=== PATIENT | female | born 1970 | race Caucasian/White ===

== ENCOUNTER → 2016-11-02 | Outpatient (CLI) | payer SELFPAY | LOC: LAB 14:23 | PROVIDERS: ATTEND Physician Assistant | DX: N89.8 Other specified noninflammatory disorders of vagina (principal); R30.0 Dysuria | CPT/HCPCS: 87491; 87591 ==

== ENCOUNTER → 2016-11-04 | Outpatient (CLI) | payer SELFPAY | LOC: MOB LAB 13:04 | PROVIDERS: ATTEND Physician Assistant | DX: N39.0 Urinary tract infection, site not specified (principal) | CPT/HCPCS: 87088 ==

== ENCOUNTER 2016-11-05 11:11 | Emergency (ER) | payer SELFPAY ==
[2016-11-05] MEDS ORDERED: MEPERIDINE HCL/PF 100 MG/1 ML INJECTION IM ONE (12:06)
[2016-11-05 12:14] VITALS: RESP 18; TEMP 97.1
[2016-11-05] MEDS ORDERED: MEPERIDINE HCL/PF 100 MG/1 ML INJECTION ONE (12:20)
[2016-11-05 12:53] LABS: BILIRUBIN,URINE NEGATIVE (NEG); CLARITY,URINE CLEAR (CLEAR); GLUCOSE, URINE (UA) NEGATIVE (NEG); LEUKOCYTE ESTERASE ,URINE NEGATIVE (NEG); NITRATE,URINE POSITIVE (NEG); OCCULT BLOOD,URINE NEGATIVE (NEG); PROTEIN,URINE NEGATIVE (NEG); UROBILINOGEN,URINE 0.2 mg/dL (0.2)
[2016-11-05 12:56] LABS: RBC,URINE 0 /hpf; SQUAMOUS EPITHELIAL CELL,UR RARE; URINE SAMPLE TYPE CATH SPECIMEN; WBC,URINE 0-1
--- NOTE | 2016-11-05 19:27 | PDOC ---
Female Problem HPI - General Chief Complaint: Genitourinary Complaint Stated Complaint: TROUBLE URINATING Date Seen by Provider: 11/05/16 Time Seen by Provider: 11:20 Source: POSITIVE: Patient, Old records Exam Limitations: POSITIVE: No limitations Nurse's Notes Reviewed & Considered: Yes - History of Present Illness Initial Comments: The patient is a 46-year-old female. She states that for the past 6 days she has been having dysuria, urinary urgency and hesitancy. She states 6 days ago, approximately, she saw her primary care provider. She states she had some "vaginal sores"at that time. She was diagnosed with herpes and was started on Valtrex, which she is still taking. She states the "sores"have largely resolved. She was also started on Septra for presumed urinary tract infection and this was switched to Macrodantin 3 days ago when she was not getting any relief from her dysuria with the Septra. GC and Chlamydiazyme were negative. I cannot find the results of any urine cultures. No fevers. No hematuria. She underwent a complete hysterectomy and a bladder sling in 1997. She's had an appendectomy and a cholecystectomy. Body Location Affected: REPORTS: Genitalia (Dysuria, urinary hasn't see, urinary urgency.) Timing: REPORTS: Constant Duration: >24 hours (6 days) Quality: REPORTS: "Pain" (Dysuria) Context: REPORTS: Possible STD Exposure (Patient states that she had intercourse for the first time in a long time several days prior to the onset of her symptoms and her "vaginal sores". She denies any prior history of STDs.) Location of Pain: REPORTS: Vaginal Pain Vaginal Bleeding: DENIES: Abnormal Bleeding, More Severe Than Periods, Heavier Than Periods, Similar to Periods, Solid Plasterer Than Periods, Spotting, Passing Clots , Passing Tissue, Other : REPORTS: S/P Hysterectomy Sexual History: REPORTS: Active Urinary Symptoms: REPORTS: Discomfort w/ Urination, Burning w/ Urination, Urinary Urgency, Painful Urination. DENIES: Blood in Urine, Frequent Urination , Other Discharge: DENIES: Vaginal Discharge, Vag Fluid Leak- , Breast Discharge, Other Similar Symptoms Previously: Yes (as above) Recent Care Received: REPORTS: Recently Seen, Treated by MD (As above) Any Prior Injuries Related to Current Complaint?: No - Patient Home Medications Home Medications: Home Medications Lorazepam 1 tab PO TID PRN #90 tab 10/03/16 Melatonin 20 mg SL BEDTIME tab 10/03/16 Naproxen Na-Diphenhydramin HCl [Aleve Pm Caplet] 1 tab PO at bedtime tab Amitriptyline HCl 1 tab PO BID #120 tab 11/02/16 Niacinamide 1,000 mg PO QD tab 11/02/16 Valacyclovir HCl [Valacyclovir] 1 unit PO BID #20 tab 11/02/16 Vitamin B Complex 1 each PO QD cap 11/02/16 Hydrocodone Bit/Acetaminophen [[place] 7.5-325 Tablet] 1 tab PO Q4-6H #10 tab 01/15 Phenazopyridine HCl [Pyridium] 200 mg PO TID #6 tab 11/04/16 Sulfamethoxazole/Trimethoprim [Bactrim Ds Tablet] 1 tab PO BID #14 tab 11/04/16 Ciprofloxacin/Ciprofloxa HCl [Cipro Xr 500 mg Tablet] 500 mg PO Q12H #20 tbmp.24hr 11/05/16 HYDROcodone/APAP 10/325 Tab [[place] 10/325 Tab] 1 tab PO Q4H PRN #25 tab Phenazopyridine HCl [Pyridium] 200 mg PO Q8H PRN #21 tablet 11/05/16 - Patient Allergies Allergies/Adverse Reactions: Allergies Allergy/AdvReac Type Severity Reaction Status Date / Time azithromycin [From Zithromax] Allergy Mild facial Verified 11/05/16 11:28 redness/swelling, hives Past Medical History - heen HEENT History: Other (please comment) Additional HEENT History: BROKEN FRONT TEETH Cardiovascular History: Denies History Respiratory History: Denies History Gastrointestinal History: Gallbladder Disease Additional Gastrointestinal History: MULTIPLE ABD SURGERIES, ADHESIONS, ABDOMINAL PAIN, Genitourinary History: Denies History Endocrine History: Denies History Musculoskeletal History: Back Pain Prosthesis or Implant: Yes (R HAND) Additional Musculoskeletal History: 07/20/14 INJURY TO RIGHT THUMB WITH SURGERY THAT SAME DAY PERFORMED BY DR RIOS/LOWER BACK INJURY Neurological History: Migraines Blood Disorders: Denies History Psychiatric History: Depression, Anxiety Disorders History of Sexually Transmitted Diseases: No Cancer History: Denies History In Past Year Been Physically Harmed or Verbally Threatened: No History of MDRO: No History of Other Communicable Diseases: No Tobacco Use: Current Every Day Smoker Alcohol Use: Occasionally Substance Use Type: Marijuana Previous Surgical History: Yes Type / Date of Surgery: BLADDER SLING/ COMPLETE HYST/ LAMI L3-5/ ORIF RIGHT WRIST/ LEFT KNEE SCOPE x2/ TONSILLECTOMY/ LEFT FEMUR RODDING AND REMOVAL OF GARO/ BILAT OOPHORECTOMY 2013/REMOVAL OF R THUMB AT [facility] 2014/TUBAL/COLONOSCOPY/EGD / CHOLECYSTECTOMY Anesthesia Reactions: No Malignant Hyperthermia: No Significant Family History: Heart disease, Cancer, Hypertension Past Medical History Reviewed: Reviewed - No Changes ROS - Limitations ROS Limitations: No Limitations Constitution: REPORTS: Denies Symptoms Cardiovascular: REPORTS: Denies Cardiac Symptoms Respiratory: REPORTS: Denies Resp Symptoms Neurological: REPORTS: Denies Neuro Symptoms Gastrointestinal: REPORTS: Denies GI Symptoms Endocrine: REPORTS: Denies Symptoms Musculoskeletal: REPORTS: Denies MS Symptoms Genitourinary: REPORTS: Dysuria, Difficulty Urinating Eyes: REPORTS: Denies Symptoms ENT: REPORTS: Denies Symptoms Skin: REPORTS: Denies Skin Symptoms Lympathic: REPORTS: Denies Lympathic Symptoms Immunologic: POSITIVE: Denies Symptoms Psychiatric: POSITIVE: Denies Psych Symptoms Female Genitourinary Exam - General Appearance General Appearance: POSITIVE: Alert, Cooperative, No Acute Distress, No Evidence of Trauma - HEENT HEENT: POSITIVE: Head Inspection Nml, Eyes Inspection Nml, Ears Inspection Nml, Nose Inspection Nml, Oral/Dental Inspect. Nml, Pharynx Inspect. Nml, PERRL, EOMI - Neck Neck: POSITIVE: Normal Inspection, No Apparent Injury - Respiratory Respiratory: POSITIVE: No Respiratory Distress, Breath Sounds Normal, Chest Non- Tender - Cardiovascular Cardiovascular: POSITIVE: Regular Rate and Rhythm, Heart Sounds Normal, Equal Pulses, Strong Pulses Peripheral Pulses: Radial (R): 2+, Radial (L): 2+ - Abdomen Abdomen: POSITIVE: Soft, Normal Bowel Sounds, Non-Tender, No Distention, No Organomegaly - Back Back: POSITIVE: Normal Inspection. NEGATIVE: CVA Tenderness (R), CVA Tenderness (L) - Genital / Rectal Pelvic Exam: POSITIVE: Vagina (One small lesion to the right lower external labia mildly vesicular. 2 scabbing lesions left labia majora.), Uterus (Status post hysterectomy), Adnexa (Not palpated), External Exam Normal (As above), Bimanual Exam Normal. NEGATIVE: Cervix (Status post hysterectomy), Speculum Exam Normal (Speculum exam generally tender. No intraoral lesions are appreciated. Patient is tender around the urethra but no obvious lesions at the urethral meatus), Vaginal Discharge, Herpes-Like Ulcerations, Vaginal Bleeding, Blood In Vaginal Vault, Clots in vaginal Vault, Cervicitis, Tissue Present in Cervix, Tissue Present in Vagina, Cervical Motion Tender, Cervical Dilation, Adnexal Tenderness, Adnexal Mass, Enlarged Uterus, Tender Uterus, Perineal Hematoma, Enlrgd Consistent w/Dates, Mild, Moderate, Severe - Skin Skin: POSITIVE: Intact, Normal For Race, Warm, Dry, No Rash - Extremities Extremity: Non-Tender: (All Extremities), Normal ROM: (All Extremities), Normal Inspection: (All Extremities) - Neurological / Psychological Neurological: POSITIVE: Oriented X3, yoke presser Normal As Tested, Motor Normal, Sensation Normal, 5, 6 Female Genitourinary Progress - Results Reviewed by me Lab Results Reviewed: Yes (urinalysis normal except nitrate positive; culture ordered) Lab Results:: Laboratory Results 11/05/16 Range/Units 12:48 Ur Collection Type Cath specimen Urine Color Yellow Urine Clarity Clear (CLEAR) Urine pH 7.0 (5.0-8.5) Ur Specific [place] 1.010 (1.005-1.030) Urine Protein Negative (NEG) mg/dl Urine Glucose (UA) Negative (NEG) mg/dL Urine Ketones Negative (NEG) Urine Occult Blood Negative (NEG) Urine Nitrate Positive H (NEG) Urine Bilirubin Negative (NEG) Urine Urobilinogen 0.2 (0.2) mg/dL Ur Leukocyte Esterase Negative (NEG) Urine RBC 0 (NONE) /hpf Urine WBC 0-1 (NONE) Ur Squamous Epith Cells Rare (NONE) Ur Renal Epithelial Cell None (NONE) Urine Crystals None Urine Bacteria None (NONE) Urine Casts None Urine Mucus None (NONE) Urine Trichomonas None (NONE) Urine Yeast None (NONE) - Patient's Progress Pain Medication Addressed: POSITIVE: Yes (Hydrocodone/APAP, one every 6 hours as necessary for pain; Pyridium one every 8 hours for urinary discomfort) School/Work Release Addressed: POSITIVE: Not Applicable Re-Examine Time: 13:25 Status: POSITIVE: Unchanged, Re-Examined - Consult Counseled: POSITIVE: Patient, RE: Lab Results, RE: DX, RE: Need for F/U Patient Care Time - Estimated PCT Patient Care Time (In Minutes): 45 Vital Signs - VS Reviewed Vital Signs Reviewed: Yes Discharge Clinical Impression: Urinary pain Discharge Disposition: Discharged to Home Condition: Fair Prescriptions / Orders: Ciprofloxacin/Ciprofloxa HCl [Cipro Xr 500 mg Tablet] 500 mg PO Q12H #20 tbmp.24hr HYDROcodone/APAP 10/325 Tab [[place] 10/325 Tab] 1 tab PO Q4H PRN #25 tab PRN Reason: Pain Phenazopyridine HCl [Pyridium] 200 mg PO Q8H PRN #21 tablet PRN Reason: Urinary Discomfort Patient Instructions Given at Discharge: Urinary Tract Infection in Women (ED) Additional Instructions: I am not completely sure why you're having continuing urinary discomfort with difficulty urinating. Repeat urinalysis today showed that you did have nitrates in your urine, which we can see with partially treated urinary tract infections. Therefore, we will switch due to an alternate antibiotic, Cipro, to be taken one twice daily for 10 days. Also take Pyridium, one every 8 hours as necessary for urinary discomfort. Hydrocodone/APAP, one every 4 hours as necessary for pain. Follow-up in urology at [place] in a few days, if you are not getting back to normal. Return here anytime if condition worsens. Follow Up With: ZACHERY VALENTIN [Primary Care Provider] - (Instructions as above. Return here anytime if condition worsens. Follow-up with urology in [place].)
== END 2016-11-05 13:37 | disposition home or self-care (01) ==
LOC: ER 11:11
DX: R30.0 Dysuria (principal); R39.11 Hesitancy of micturition
CPT/HCPCS: 81001; 87088; 96372; 99282; 99283; J2175

== ENCOUNTER → 2016-11-09 | Outpatient (CLI) | payer SELFPAY ==
[2016-11-09 10:14] LABS: BASOPHILS # (AUTO) 0.04 10*3/UL; BASOPHILS % (AUTO) 0.5 % (0-1); HEMATOCRIT 40.4 % (37.0-47.0); HEMOGLOBIN 13.9 g/dL (12.0-16.0); IMM GRAN % (AUTO) 0.1 % (0-5); IMM GRAN# (AUTO) 0.01 10*3/UL; LYMPHOCYTES # (AUTO) 2.07 10*3/uL; LYMPHOCYTES % (AUTO) 24.8 % (10-50); MEAN CORPUSCULAR HEMOGLOBIN 30.1 PG (27-31); MEAN CORPUSCULAR HGB CONC 34.4 g/dL (33-37); MEAN PLATELET VOLUME 9.3 FL (7.4-12.2); MONOCYTES # (AUTO) 0.52 10*3/UL (0.3-0.8); MONOCYTES % (AUTO) 6.2 % (5-15); NEUTROPHILS # (AUTO) 5.54 10*3/UL; NEUTROPHILS % (AUTO) 66.4 % (50-80); RDW COEFFICIENT OF VARIATION 13.9 % (11.5-14.5); RED BLOOD COUNT 4.62 10^6/uL (4.20-5.40); WHITE BLOOD COUNT 8.35 10^3/uL (4.8-10.8)
[2016-11-09 10:16] LABS: PLATELET MORPHOLOGY COMMENT NORMAL MORPHOLOGY (NORM)
[2016-11-09 10:40] LABS: ASPARTATE AMINO TRANSFERASE 60 IU/L (8-39); BILIRUBIN,TOTAL 0.5 mg/dL (0.3-1.2); BLOOD UREA NITROGEN 15 mg/dL (7-22); BUN/CREATININE RATIO 16.66 (6-20); CALCIUM 9.7 mg/dL (8.7-10.7); CHLORIDE 103 meq/L (98-112); CREATININE 0.9 mg/dL (0.50-1.20); EST GLOMERULAR FILTRATION > 60 (>60 ml/min/1.73m(2)); GLUCOSE 108 mg/dL (78-110); POTASSIUM 4.4 meq/L (3.8-5.2); SODIUM 138 meq/L (135-145); TOTAL PROTEIN 7.1 g/dL (6.1-8.0)
== END ==
LOC: LAB 10:02
PROVIDERS: ATTEND Physician Assistant
DX: R33.8 Other retention of urine (principal)
CPT/HCPCS: 36415; 80053; 85025

== ENCOUNTER → 2016-11-09 | Outpatient (CLI) | payer SELFPAY ==
--- NOTE | 2016-11-09 11:12 | DI ---
MRI LUMBAR SPINE W/O CN,11/09/2016 9:04 AM: Clinical History: Urine retention. Previous Exam: CT abdomen pelvis performed May 27, 2016. And September 14, 2015 MRI lumbar spine. Findings: Multiplanar MR images are obtained through the lumbar spine without contrast. There is variant anatomy of the lumbar spine. There is a small right-sided disc digital rib involving what is likely the first lumbar vertebral body. There is partial lumbarization of the first sacral v ertebral body. There are cystic changes involving the posterior articular surfaces of the L5/S1 posterior articulat ing facets. There is a trace amount of fluid within the facet joints as well. There is stable grade 1 anterolisthesis of L5/S1. The distal conus is normal at the L1 level. Signal within the musculature is unremarkable. The intra-abdominal structures are unremarkable. There is preserved vertebral body height. Individual intervertebral disc spaces: L1/2: No significant stenosis. L2/3: No significant stenosis. L3/4: There is disc desiccation, annular fissuring and a broad-based disc bulge combining with facet and ligamentum flavum hypertrophy to cause mild bilateral neural foraminal narrowing. L4/5: There is mild bilateral neural foraminal narrowing without significant central canal stenosis. L5/S1: There is stable grade 1 anterolisthesis with disc desiccation and annular fissuring and a stab le broad-based disc bulge combining with facet and ligamentum flavum hypertrophy. There are multiple synovial cysts at this level. The most inferior of these is slightly larger than on the comparison ex am, and measures 10.3 mm in long axis. There is stable severe left and moderate right neuroforaminal narrowing. Impression: 1. Enlarging synovial cysts with degenerative changes of the posterior articulating facets at L5/S1. 2. Severe left and moderate right neuroforaminal narrowing at L5/S1 unchanged from the prior exam.
--- NOTE | 2016-11-09 11:54 | DI ---
CT PELVIS W/O CONTRAST,11/09/2016 9:04 AM: Clinical History: The urinary retention. Previous Exam: May 27, 2016 Findings: Multiple helically acquired CT images are obtained through the pelvis without contrast, and demonstra te a Andrews catheter within the urinary bladder. The urinary bladder is decompressed due to the Andrews. There is a large amount of dried stool throughout the visualized portions of the transverse colon. Th e splenic flexure is not seen on this exam. There is also a large amount of stool within the right co roxana. There is no free fluid nor free air. There is no mesenteric or retroperitoneal lymphadenopathy. The skeletal structures are unremarkable except for some mild degenerative changes. There is no evide nce of acute appendicitis. Impression: Urinary bladder decompressed by a Andrews catheter. Large amount of dried stool throughout the transverse colon. Correlate clinically. If there is concer n for obstruction, consider colonoscopy.
== END ==
LOC: LAB 09:03
PROVIDERS: ATTEND Physician Assistant
DX: R33.9 Retention of urine, unspecified (principal)
CPT/HCPCS: 72148; 72192

== ENCOUNTER → 2016-12-06 | Outpatient (CLI) | payer SELFPAY ==
--- NOTE | 2016-12-06 14:26 | DI ---
MRI CERVICAL SPINE SCAN, 12/06/2016 1:02 PM: Clinical History: Neck pain. Previous Exam: 09/07/2010. Sequences: Sagittal T1and T2 weighted. Axial T2 PLUS and FE 3D DUAL. Coronal T1 scans through the upp er cervical spine. The vertebral bodies are of normal height and size. There are moderate to moderately severe disc spac e narrowing changes from C2-3 through C5-6. Desiccation changes are noted from C2-3 through C6-7. The cervical cord and cerebellar tonsils are normal. C2-3 disc space is normal. C3-4 through C5-6 all sh ow mild circumferentially bulging but not herniated discs without canal or significant neural foramin al stenosis. The C6-7 through T3-4 disc spaces are normal. Readin. Chronic disc space narrowing with bulging but not herniated discs in width no canal or neural for aminal stenosis from C3-4 through C5-6. 2. Normal disc spaces at C2-3 and from C6-7 through T3-4.
== END ==
LOC: MRI 12:58
PROVIDERS: ATTEND Nurse Practitioner
DX: M54.2 Cervicalgia (principal); M47.812 Spondylosis without myelopathy or radiculopathy, cervical region
CPT/HCPCS: 72141

== ENCOUNTER 2016-12-07 19:38 | Emergency (ER) | payer SELFPAY ==
[2016-12-07] MEDS ORDERED: KETOROLAC 30 MG/1 ML VIAL IVP ONE (20:37)
[2016-12-07] MEDS ORDERED: Sodium Chloride 0.9% 1,000 ML PRIMARY IV ONE (20:37)
[2016-12-07] MEDS ORDERED: Piperacillin/Tazobactam Inj 3.375 GM in Sodium Chloride 0.9% 100 ML IV ONE (20:37)
[2016-12-07] MEDS ORDERED: Ertapenem Inj 1 GM in Sodium Chloride 0.9% 100 ML IV ONE (20:42)
--- NOTE | 2016-12-07 20:55 | PDOC ---
Upper Ext Injury HPI - General Chief Complaint: Upper Extremity Problem/Injury Stated Complaint: Right 4th and 5th finger/hand pain Date Seen by Provider: 12/07/16 Time Seen by Provider: 20:40 Source: POSITIVE: Patient Exam Limitations: POSITIVE: No limitations Nurse's Notes Reviewed & Considered: Yes - History of Present Illness Initial Comments: Patient with complaints of right fourth finger pain with swelling, erythema, and open wound. The patient is a tax director. She was holding a set of hemostats with which she had been cleaning out dogears. She fell and the end of the hemostat went into the finger at the level of the PIP joint fourth finger right hand. He comes in now with increased swelling pain erythema and heat in her finger. Have you received a tetanus shot in the past 10 years?: Yes Body Location Affected: REPORTS: Upper Extremity (R) Timing: REPORTS: Abrupt Duration: <24 hours Quality: REPORTS: "Pain", Stabbing, Throbbing, Tenderness, Pressure Location at Time of Onset: REPORTS: Work Context of Injury: REPORTS: Stab Modifying Factors: REPORTS: Movement, Nothing Relieves Any Prior Injuries Related to Current Complaint?: No - Patient Home Medications Home Medications: Home Medications Lorazepam 1 tab PO TID PRN #90 tab 10/03/16 Melatonin 20 mg SL BEDTIME tab 10/03/16 Naproxen Na-Diphenhydramin HCl [Aleve Pm Caplet] 1 tab PO at bedtime tab Amitriptyline HCl 1 tab PO BID #120 tab 11/02/16 Niacinamide 1,000 mg PO QD tab 11/02/16 Valacyclovir HCl [Valacyclovir] 1 unit PO BID #20 tab 11/02/16 Vitamin B Complex 1 each PO QD cap 11/02/16 HYDROcodone/APAP 10/325 Tab [[place] 10/325 Tab] 1 tab PO Q4H PRN #25 tab - Patient Allergies Allergies/Adverse Reactions: Allergies Allergy/AdvReac Type Severity Reaction Status Date / Time azithromycin [From Zithromax] Allergy Mild facial Verified 12/07/16 19:47 redness/swelling, hives Past Medical History - heen HEENT History: Other (please comment) Additional HEENT History: BROKEN FRONT TEETH Cardiovascular History: Denies History Respiratory History: Denies History Gastrointestinal History: Gallbladder Disease Additional Gastrointestinal History: MULTIPLE ABD SURGERIES, ADHESIONS, ABDOMINAL PAIN Genitourinary History: Denies History Endocrine History: Denies History Musculoskeletal History: Back Pain, Back Injury, Other (please comment) Prosthesis or Implant: Yes (R hand) Additional Musculoskeletal History: 07/20/14 INJURY TO RIGHT THUMB WITH SURGERY THAT SAME DAY PERFORMED BY DR RIOS/LOWER BACK INJURY, Chronic back pain Neurological History: Migraines Blood Disorders: Denies History Psychiatric History: Depression, Anxiety Disorders History of Sexually Transmitted Diseases: No Cancer History: Denies History In Past Year Been Physically Harmed or Verbally Threatened: No History of MDRO: No History of Other Communicable Diseases: No Tobacco Use: Current Every Day Smoker Alcohol Use: Occasionally Substance Use Type: Marijuana, Other (please comment) Previous Surgical History: Yes Type / Date of Surgery: BLADDER SLING/ COMPLETE HYST/ LAMI L3-5/ ORIF RIGHT WRIST/ LEFT KNEE SCOPE x2/ TONSILLECTOMY/ LEFT FEMUR RODDING AND REMOVAL OF GARO/ BILAT OOPHORECTOMY 2013/REMOVAL OF R THUMB AT [facility] 2014/TUBAL/COLONOSCOPY/EGD / CHOLECYSTECTOMY Anesthesia Reactions: No Malignant Hyperthermia: No Significant Family History: Heart disease, Cancer, Hypertension ROS - Limitations ROS Limitations: No Limitations Constitution: REPORTS: Denies Symptoms Cardiovascular: REPORTS: Denies Cardiac Symptoms Respiratory: REPORTS: Denies Resp Symptoms Neurological: REPORTS: Denies Neuro Symptoms Gastrointestinal: REPORTS: Denies GI Symptoms Endocrine: REPORTS: Denies Symptoms Musculoskeletal: REPORTS: Joint Pain Genitourinary: REPORTS: Denies Symptoms Eyes: REPORTS: Denies Symptoms ENT: REPORTS: Denies Symptoms Skin: REPORTS: Denies Skin Symptoms Lympathic: REPORTS: Denies Lympathic Symptoms Immunologic: POSITIVE: Denies Symptoms Psychiatric: POSITIVE: Denies Psych Symptoms Upper Ext Injury Exam - General Appearance General Appearance: POSITIVE: Alert, Cooperative, No Acute Distress - Extremities Upper Extremity: POSITIVE: Normal Color, Soft Tissue Tenderness, Swelling, Ecchymosis, Erythema Neurovascular/Tendon: POSITIVE: Sensation Normal, Motor Normal, No Vascular Compromise Skin: POSITIVE: Warm, Dry - HEENT HEENT: POSITIVE: Head Inspection Nml, Eyes Inspection Nml, Ears Inspection Nml, Nose Inspection Nml, PERRL, EOMI - Neck / Back Neck/Back: POSITIVE: Normal Inspection - Respiratory / CVS Respiratory / CVS: POSITIVE: Chest Non Tender, Breath Sounds Normal, No Respiratory Distress, Heart Sounds Normal, Regular Rate/Rhythm - Abdomen Abdomen: Soft: (All Quadrants), Normal Bowel Sounds: (All Quadrants), Denies Tenderness: (All Quadrants) Procedures - Laceration/Wound Repair Did patient have a laceration repair: No Upper Ext Injury Progress - Results Reviewed by me Xrays/CTs/US Reviewed by me: Yes Discussed with Radiologist: Yes Lab Results Reviewed: Yes Lab Results:: Laboratory Results 12/07/16 12/07/16 Range/Units 21:00 21:05 WBC 10.65 (4.8-10.8) 10^3/uL RBC 4.35 (4.20-5.40) 10^6/uL Hgb 13.3 (12.0-16.0) g/dL Hct 39.1 (37.0-47.0) % MCV 89.9 (81-99) FL MCH 30.6 (27-31) PG MCHC 34.0 (33-37) g/dL RDW Std Deviation 48.2 (39-50) fL RDW Coeff of Alyce 14.9 H (11.5-14.5) % Plt Count 248 (140-350) 10*3/uL MPV 9.1 (7.4-12.2) FL Immature Gran % (Auto) 0.1 (0-5) % Neut % (Auto) 62.7 (50-80) % Lymph % (Auto) 25.4 (10-50) % Park % (Auto) 8.2 (5-15) % Eos % (Auto) 3.3 (0-8) % Baso % (Auto) 0.3 (0-1) % Immature Gran # (Auto) 0.01 10*3/UL Neut # (Auto) 6.69 10*3/UL Lymph # (Auto) 2.70 10*3/uL [place] # (Auto) 0.87 H (0.3-0.8) 10*3/UL Eos # (Auto) 0.35 10*3/UL Baso # (Auto) 0.03 10*3/UL WBC Morphology Comment Normal morphology (NORM) Plt Morphology Comment Normal morphology (NORM) RBC Morph Comment Normal morphology (NORM) C-Reactive Protein 2.7 H (0.0-0.9) mg/dL - Patient's Progress Pain Medication Addressed: POSITIVE: Yes Re-Examine Time: 23:43 Status: POSITIVE: Improved MDM / ED Course: Patient was evaluated, IV start, blood drawn and sent to the lab for studies, CT scan of her hand was obtained. ER course: Patient received a liter of normal saline, morphine sulfate, Toradol , Zofran. Pain did improve. Findings: CBC shows white count is normal. CRP is elevated. CT scan shows cellulitis but no focal abscess. Next Plan: Discharge home on Augmentin, [place] for pain, follow-up with doctor in 48 hours. - Consult Counseled: POSITIVE: Family, RE: Lab Results, RE: Radiology Results, RE: DX, RE : Need for F/U Patient Care Time - Estimated PCT Patient Care Time (In Minutes): 45 Vital Signs - Recent Vital Signs Vital Signs: Vital Signs (Last 8 hours) Temp Pulse Resp BP Pulse Ox 12/07/16 19:40 98.1 F 86 22 153/89 95 - VS Reviewed Vital Signs Reviewed: Yes Discharge Clinical Impression: Cellulitis of finger of right hand Discharge Disposition: Discharged to Home Condition: Stable Patient Instructions Given at Discharge: Cellulitis (ED)
[2016-12-07 21:09] LABS: BASOPHILS # (AUTO) 0.03 10*3/UL; BASOPHILS % (AUTO) 0.3 % (0-1); EOSINOPHILS % (AUTO) 3.3 % (0-8); HEMATOCRIT 39.1 % (37.0-47.0); HEMOGLOBIN 13.3 g/dL (12.0-16.0); IMM GRAN % (AUTO) 0.1 % (0-5); IMM GRAN# (AUTO) 0.01 10*3/UL; LYMPHOCYTES % (AUTO) 25.4 % (10-50); MEAN CORPUSCULAR HEMOGLOBIN 30.6 PG (27-31); MEAN PLATELET VOLUME 9.1 FL (7.4-12.2); MONOCYTES # (AUTO) 0.87 10*3/UL (0.3-0.8); MONOCYTES % (AUTO) 8.2 % (5-15); NEUTROPHILS # (AUTO) 6.69 10*3/UL; NEUTROPHILS % (AUTO) 62.7 % (50-80); PLATELET MORPHOLOGY COMMENT NORMAL MORPHOLOGY (NORM); RDW COEFFICIENT OF VARIATION 14.9 % (11.5-14.5); RED BLOOD COUNT 4.35 10^6/uL (4.20-5.40); WHITE BLOOD COUNT 10.65 10^3/uL (4.8-10.8)
--- NOTE | 2016-12-07 21:23 | DI ---
RIGHT HAND, 12/07/2016 8:04 PM: Clinical History: Injury and pain involving the proximal portion of the right ring finger. Previous Exam: 09/07/2014. 3 views are submitted. There is no acute soft tissue, osseous, or joint abnormality. The patient is s tatus post ORIF of a fracture of the distal radius. 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 There i s no acute fracture or dislocation although on the lateral projection, all of the digits are overlapp ing each other. Readin. No definite acute fracture or dislocation is identified. 2. If symptoms persist at the affected site, then follow-up films are recommended in 7-10 days. 3. 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
[2016-12-07] MEDS ORDERED: MORPHINE SULFATE 4 MG/1 ML IVP ONE ×2 (21:47→23:15)
--- NOTE | 2016-12-07 23:37 | DI ---
HISTORY: Infection of right hand/finger. COMPARISON: None. TECHNIQUE: An IV contrast enhanced CT examination of the right hand was performed. Images were prese nted in the axial, coronal and sagittal plane. FINDINGS: There is soft tissue edema/inflammation within the palmar subcutaneous tissues at the leve l of the fourth metacarpal phalangeal joint. No underlying osseous erosion is seen. No rim enhancing fluid collection is seen to suggest abscess formation. There is a chronic healed posttraumatic deformity of the fifth metacarpal. There is absence of the di stal phalanx of the first digit. There are postsurgical changes in the distal radius which are partia lly imaged status post open reduction and internal fixation. IMPRESSION: 1. There is soft tissue inflammation within the palmar soft tissues at the level of the fourth metaca rpal phalangeal joint. No rim enhancing fluid collection is seen to suggest abscess formation. This i s likely cellulitis. No definite bone involvement is seen.
[2016-12-07] MEDS ORDERED: HYDROcodone-APAP 5 MG -325 MG TABLET PO SCH (23:45)
[2016-12-08 00:27] VITALS: RESP 22; TEMP 98.1
== END 2016-12-08 00:10 | disposition home or self-care (01) ==
LOC: ER 19:38
DX: L03.011 Cellulitis of right finger (principal); W01.118A Fall on same level from slipping, tripping and stumbling with subsequent striking against other sharp object, initial encounter
CPT/HCPCS: 73130; 73201; 85025; 86140; 96361; 96365; 96375; 96376; 99283 ×2; J1885; J1335; J2270; J7030; J7050

== ENCOUNTER 2016-12-08 18:58 | Inpatient (IN) | payer SELFPAY ==
[2016-12-08] MEDS ORDERED: HYDROmorphone 2 MG/1 ML IVP ONE (19:20)
[2016-12-08] MEDS ORDERED: NORMAL SALINE 10 ML SYRINGE FLUSH IVP PRN (19:20)
[2016-12-08] MEDS ORDERED: Sodium Chloride 0.9% 1,000 ML PRIMARY IV ONE (19:20)
[2016-12-08 19:29] LABS: BASOPHILS # (AUTO) 0.01 10*3/UL; BASOPHILS % (AUTO) 0.1 % (0-1); EOSINOPHILS # (AUTO) 0.36 10*3/UL; EOSINOPHILS % (AUTO) 3.6 % (0-8); HEMATOCRIT 38.7 % (37.0-47.0); HEMOGLOBIN 12.9 g/dL (12.0-16.0); LYMPHOCYTES # (AUTO) 2.37 10*3/uL; MEAN CORPUSCULAR HEMOGLOBIN 30.3 PG (27-31); MEAN CORPUSCULAR HGB CONC 33.3 g/dL (33-37); MEAN PLATELET VOLUME 9.1 FL (7.4-12.2); NEUTROPHILS # (AUTO) 6.43 10*3/UL; NEUTROPHILS % (AUTO) 64.5 % (50-80); RED BLOOD COUNT 4.26 10^6/uL (4.20-5.40)
[2016-12-08 19:39] LABS: PLATELET MORPHOLOGY COMMENT NORMAL MORPHOLOGY (NORM); RBC MORPHOLOGY COMMENT NORMAL MORPHOLOGY (NORM); WBC MORPHOLOGY COMMENT NORMAL MORPHOLOGY (NORM)
[2016-12-08 19:43] LABS: BLOOD UREA NITROGEN 8 mg/dL (7-22); BUN/CREATININE RATIO 11.42 (6-20); CALCIUM 9.5 mg/dL (8.7-10.7); EST GLOMERULAR FILTRATION > 60 (>60 ml/min/1.73m(2)); SERUM ALBUMIN 4.4 g/dL (3.5-4.8)
[2016-12-08] MEDS ORDERED: BACITRACIN 50,000 UNIT VIAL IRRIG ONE (21:42)
[2016-12-08] MEDS ORDERED: Sodium Chloride 0.9% vial 10 ML ONE (21:42)
[2016-12-08] MEDS ORDERED: LIDOCAINE 2%/ EPI 1:200,000 - 20 ML VIAL ONE (21:51)
[2016-12-08] MEDS ORDERED: MEPIVACAINE HCL/PF 20 MG/1 ML IV ONE (21:51)
[2016-12-08] MEDS ORDERED: MIDAZOLAM 5 MG/1 ML ONE (21:51)
[2016-12-08] MEDS ORDERED: fentaNYL Inj 250 MCG/5 ML VIAL ONE (21:52)
[2016-12-08] MEDS ORDERED: AMPICILLIN/SULBACTAM 3 GM VIAL IV ONE ×2 (21:57→22:23)
[2016-12-08] MEDS ORDERED: Sodium Chloride 0.9% 100 ML IV ONE (22:23)
--- NOTE | 2016-12-08 22:31 | ORTHO.CON ---
Consult Note - Consult Consult Date: 12/08/16 Reason for Consult: PreOp Consulation : Ortho Requesting Physician: Dr. Myers Primary Care Provider: ZACHERY VALENTIN - History of Present Illness History of Present Illness: Patient is a 46-year-old [id number] female who is coming in today for increasing pain and swelling to her right ring finger. 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 of force up into the PIP joint of her ring finger. She notes by the next day started to have increasing pain and discomfort and was seen in the emergency room where she was started on Invanz IV and given oral Augmentin. Patient notes by the next morning her pain was increasing and continuing and she came in this evening for further care and treatment. She denies fevers chills or night sweats. She notes that she is having increasing deformity and swelling to the finger and also started to notice some swelling along the dorsal aspect of hand. Notes no previous problems with infections. Notes no fevers chills or night sweats. No constitutional symptoms. Past Medical History Substance Use Type: Marijuana, Other (please comment) Medication / Allergies Home Medications: Home Medications Medication Instructions Recorded Confirmed Type Lorazepam 1 tab PO TID PRN #90 tab 10/03/16 12/08/16 Clinic Melatonin 20 mg SL BEDTIME tab 10/03/16 12/08/16 History Naproxen Na-Diphenhydramin HCl 1 tab PO at bedtime tab 10/03/16 12/08/16 History [Aleve Pm Caplet] Amitriptyline HCl 1 tab PO BID #120 tab 11/02/16 12/08/16 Clinic Niacinamide 1,000 mg PO QD tab 11/02/16 12/08/16 History Valacyclovir HCl [Valacyclovir] 1 unit PO BID #20 tab 11/02/16 12/08/16 Clinic Vitamin B Complex 1 each PO QD cap 11/02/16 12/08/16 History HYDROcodone/APAP 10/325 Tab 1 tab PO Q4H PRN #25 tab 11/05/16 12/08/16 Rx [[place] 10/325 Tab] Allergies/Adverse Reactions: Allergies Allergy/AdvReac Type Severity Reaction Status Date / Time azithromycin [From Zithromax] Allergy Mild facial Verified 12/08/16 19:45 redness/swelling, hives Exam - - Exam: Examination shows that the patient is a well-developed well-nourished female in no apparent distress. She is alert and oriented 3 she is coordinated with appropriate affect vital signs show a blood pressure 145/102 a heart rate of 101 respiratory rate 18 temperature 97.2 and oxygenation 94% on room air. Patient smokes a half pack per day and occasional alcohol use. 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 Patient's right hand shows almost a white line that almost appears to be a Dupuytren's contracture but is only been present for the last 12 hours and is quite tender to palpation she has classic [place] signs with passive stretch pain and pain along the flexor tendon fusiform swelling and contractures. This extends up to about the midportion of the palm and all the way distally. She has full passive motion of the small finger middle finger index finger and thumb her sensory exam is generally intact. She also has some swelling along the dorsal aspect of the MCP joint of the right hand. She has an old puncture area around the PIP joint more the ulnar aspect but cannot really evaluate this well since we cannot straighten out the finger to look at this because of pain Patient had x-rays which show no evidence of fracture dislocations or loose bodies may be an old fracture the fifth metacarpal. Radiographs CT scan which was obtained of the hand by the reading by the radiologist said Laboratory Results 12/08/16 Range/Units 19:26 WBC 9.98 (4.8-10.8) 10^3/uL RBC 4.26 (4.20-5.40) 10^6/uL Hgb 12.9 (12.0-16.0) g/dL Hct 38.7 (37.0-47.0) % MCV 90.8 (81-99) FL MCH 30.3 (27-31) PG MCHC 33.3 (33-37) g/dL RDW Std Deviation 48.0 (39-50) fL RDW Coeff of Alyce 14.8 H (11.5-14.5) % Plt Count 221 (140-350) 10*3/uL MPV 9.1 (7.4-12.2) FL Immature Gran % (Auto) 0.1 (0-5) % Neut % (Auto) 64.5 (50-80) % Lymph % (Auto) 23.7 (10-50) % [place] % (Auto) 8.0 (5-15) % Eos % (Auto) 3.6 (0-8) % Baso % (Auto) 0.1 (0-1) % Immature Gran # (Auto) 0.01 10*3/UL Neut # (Auto) 6.43 10*3/UL Lymph # (Auto) 2.37 10*3/uL [place] # (Auto) 0.80 (0.3-0.8) 10*3/UL Eos # (Auto) 0.36 10*3/UL Baso # (Auto) 0.01 10*3/UL WBC Morphology Comment Normal morphology (NORM) Plt Morphology Comment Normal morphology (NORM) RBC Morph Comment Normal morphology (NORM) Sodium 129 L (135-145) meq/L Potassium 3.4 L (3.8-5.2) meq/L Chloride 101 (98-112) meq/L Carbon Dioxide 22 L (23-33) meq/L Anion Gap 6 (5-20) BUN 8 (7-22) mg/dL Creatinine 0.7 (0.50-1.20) mg/dL Estimated GFR > 60 (>60 ml/min/1.73m(2)) BUN/Creatinine Ratio 11.42 (6-20) Glucose 115 H (78-110) mg/dL Calculated Osmolality 266.0 L (267-292) mOsm/kg Calcium 9.5 (8.7-10.7) mg/dL Total Bilirubin 0.4 (0.3-1.2) mg/dL AST 21 (8-39) IU/L ALT 24 (9-52) IU/L Alkaline Phosphatase 101 (38-126) IU/L Total Protein 7.3 (6.1-8.0) g/dL Albumin 4.4 (3.5-4.8) g/dL Globulin 2.9 (2.50-4.10) g/dL Albumin/Globulin Ratio 1.50 (1.3-2.0) mg/g that there was no evidence of abscess but certainly evidence of cellulitis. - Vitals Vital Signs: Vital Signs Height 5 ft 6.5 in Weight 96.615 kg Results - Labs CBC and BMP: 12/08/16 19:26 12/08/16 19:26 Labs - Last 24 Hours: Laboratory Results 12/08/16 Range/Units 19:26 WBC 9.98 (4.8-10.8) 10^3/uL RBC 4.26 (4.20-5.40) 10^6/uL Hgb 12.9 (12.0-16.0) g/dL Hct 38.7 (37.0-47.0) % MCV 90.8 (81-99) FL MCH 30.3 (27-31) PG MCHC 33.3 (33-37) g/dL RDW Std Deviation 48.0 (39-50) fL RDW Coeff of Alyce 14.8 H (11.5-14.5) % Plt Count 221 (140-350) 10*3/uL MPV 9.1 (7.4-12.2) FL Immature Gran % (Auto) 0.1 (0-5) % Neut % (Auto) 64.5 (50-80) % Lymph % (Auto) 23.7 (10-50) % [place] % (Auto) 8.0 (5-15) % Eos % (Auto) 3.6 (0-8) % Baso % (Auto) 0.1 (0-1) % Immature Gran # (Auto) 0.01 10*3/UL Neut # (Auto) 6.43 10*3/UL Lymph # (Auto) 2.37 10*3/uL [place] # (Auto) 0.80 (0.3-0.8) 10*3/UL Eos # (Auto) 0.36 10*3/UL Baso # (Auto) 0.01 10*3/UL WBC Morphology Comment Normal morphology (NORM) Plt Morphology Comment Normal morphology (NORM) RBC Morph Comment Normal morphology (NORM) Sodium 129 L (135-145) meq/L Potassium 3.4 L (3.8-5.2) meq/L Chloride 101 (98-112) meq/L Carbon Dioxide 22 L (23-33) meq/L Anion Gap 6 (5-20) BUN 8 (7-22) mg/dL Creatinine 0.7 (0.50-1.20) mg/dL Estimated GFR > 60 (>60 ml/min/1.73m(2)) BUN/Creatinine Ratio 11.42 (6-20) Glucose 115 H (78-110) mg/dL Calculated Osmolality 266.0 L (267-292) mOsm/kg Calcium 9.5 (8.7-10.7) mg/dL Total Bilirubin 0.4 (0.3-1.2) mg/dL AST 21 (8-39) IU/L ALT 24 (9-52) IU/L Alkaline Phosphatase 101 (38-126) IU/L Total Protein 7.3 (6.1-8.0) g/dL Albumin 4.4 (3.5-4.8) g/dL Globulin 2.9 (2.50-4.10) g/dL Albumin/Globulin Ratio 1.50 (1.3-2.0) mg/g Assessment and Plan - Assessment / Plan Additional Assessment/Plan Details: Impression: Right hand flexor tenosynovitis of ring finger Plan: At this point this is beneficial rapid progression we will get the patient set up for incision and drainage and washout and starting her on IV antibiotics. I've discussed the case with infectious disease and we will start her after we obtain cultures on Unasyn 3 g every 6 hours until supportive cultures have returned. We also discussed with the patient the incision so we' ll be making and we will be leaving these open and beginning therapy with a low threshold of possible return to the OR for washout. We discussed the patient's current condition and clinical findings as it pertains to the current situation. Surgical versus nonsurgical options risks and benefits were discussed and reviewed. Options moving forward include but are not limited to continued choice to live with their current condition; evaluate their current condition further with imaging studies and/or diagnostic testing, etc.; treat problem/problems with surgical versus nonsurgical methods. The patient demonstrates a clear understanding of our discussion. All questions were answered. Surgical versus nonsurgical options risks and benefits were Discussed and reviewed. Risks include but are not limited to bleeding, infection, neurovascular damage, wound problems, deep vein thromboses, pulmonary embolism, need for further surgery, and loss of life and limb. Certainly any surgical procedure may not improve symptoms and potentially could makes symptoms worse. There are no guarantees implied with the discussion of surgical treatment. All questions were answered and the patient wishes to proceed with surgical treatment.
--- NOTE | 2016-12-08 23:14 | CRNA.PROCE ---
Nerve Block Documentation - - Safety Measures: Time Out Taken, Site Verified - - Type of Nerve Block Used: Right Axillary Block Position for Nerve Block: Supine Moniters Used During Block: EKG, SPO2, NIBP Oxygen Sumpplented: Yes Sedation Used - Enter Amount in Comment Field: Midazolam (mg): Yes (2mg iv preop ), Fentanyl (mcg): Yes (150mcg iv preop) Skin Prep Used: ChloroPrep Technique: Other (Periarterial tech) Nerve Block Needle Used: Other (22ga B-Bevel) Local Anesthetic - Enter Amt in Comment Field: 2 % Xylocaine with Epinephrine 1: 200,000 (mL): Yes (20ml), 2 % Mepivacaine (mL): Yes (20ml)
[2016-12-08] MEDS ORDERED: Lactated Ringers 1,000 ML PRIMARY IV ONE (23:33)
[2016-12-08] MEDS ORDERED: TRANEXAMIC ACID 1,000 MG / 10 ML VIAL ONE (23:45)
[2016-12-09] MEDS ORDERED: HYDROmorphone 2 MG/1 ML ONE (00:14)
[2016-12-09] MEDS ORDERED: HYDROmorphone 2 MG/1 ML IVP ONE (00:19)
[2016-12-09] MEDS ORDERED: MAG HYDROX/AL HYDROX/SIMETH 30 ML SUSP PO PRN (00:46)
[2016-12-09] MEDS ORDERED: Ondansetron ODT Tab 8 MG TAB PO PRN (00:46)
[2016-12-09] MEDS ORDERED: diphenhydrAMINE 25 MG CAPSULE PO PRN (00:46)
[2016-12-09] MEDS ORDERED: BISACODYL 5 MG TABLET PO PRN (00:46)
[2016-12-09] MEDS ORDERED: BISACODYL 10 MG SUPPOSITORY RECTAL PRN (00:46)
[2016-12-09] MEDS ORDERED: IBUPROFEN 400 MG TABLET PO PRN (00:46)
[2016-12-09] MEDS ORDERED: Prochlorperazine Tab 10 MG TAB PO PRN (00:46)
[2016-12-09] MEDS ORDERED: ACETAMINOPHEN 325 MG TABLET PO PRN (00:46)
[2016-12-09] MEDS ORDERED: CALCIUM CARBONATE 500 MG (TUMS) CHEWABLE TABLET PO PRN (00:46)
[2016-12-09] MEDS: Lactated Ringers 1,000 ML PRIMARY IV SCH ×3 (00:55→21:03)
--- NOTE | 2016-12-09 01:02 | PDOC ---
Head Injury HPI - General Chief Complaint: Integumentary Stated Complaint: Increased swelling/redness in hand wound Date Seen by Provider: 12/08/16 Time Seen by Provider: 19:00 Source: POSITIVE: Patient Exam Limitations: POSITIVE: No limitations Nurse's Notes Reviewed & Considered: Yes - History of Present Illness Initial Comments: The patient is a 46-year-old female. 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 She stumbled and the sharp end of the hemostat punctured her right fourth finger over the proximal intra-phalangeal joint. Patient was seen in the emergency room yesterday for this problem and x-ray of the digit was read as normal and the patient had a CT scan of this digit which did not show any abscesses. Since seen in the emergency room yesterday, the patient has developed increased pain to the right ring finger extending down into the flexor tendon of the fourth metacarpal. Patient has had considerable swelling to this digit and surrounding cellulitis. Patient is unable to extend the involved digit due to pain. No fevers or chills noted. Have you received a tetanus shot in the past 10 years?: Yes Body Location Affected: REPORTS: Upper Extremity (R) Timing: REPORTS: Abrupt Duration: >24 hours (2 days [employer]) Severity: Severe Context: REPORTS: Stab Location at Time of Onset: REPORTS: Work Quality: REPORTS: "Pain" Associated Symptoms: DENIES: Dazed, Seizure, Trouble Breathing, Memory Impairment, Recalls Injury, Recalls Coming to ER, Blow to Head, Lost Consciousness, Other Location of Injuries / Pain: REPORTS: Right, Hand (Fourth finger) Any Prior Injuries Related to Current Complaint?: Yes (as above) - Patient Home Medications Home Medications: Home Medications Lorazepam 1 tab PO TID PRN #90 tab 10/03/16 Melatonin 20 mg SL BEDTIME tab 10/03/16 Naproxen Na-Diphenhydramin HCl [Aleve Pm Caplet] 1 tab PO at bedtime tab Amitriptyline HCl 1 tab PO BID #120 tab 11/02/16 Niacinamide 1,000 mg PO QD tab 11/02/16 Valacyclovir HCl [Valacyclovir] 1 unit PO BID #20 tab 11/02/16 Vitamin B Complex 1 each PO QD cap 11/02/16 HYDROcodone/APAP 10/325 Tab [[place] 10/325 Tab] 1 tab PO Q4H PRN #25 tab - Patient Allergies Allergies/Adverse Reactions: Allergies Allergy/AdvReac Type Severity Reaction Status Date / Time azithromycin [From Zithromax] Allergy Mild facial Verified 12/08/16 19:45 redness/swelling, hives Past Medical History - heen HEENT History: Other (please comment) Additional HEENT History: BROKEN FRONT TEETH Cardiovascular History: Denies History Respiratory History: Denies History Gastrointestinal History: Gallbladder Disease Additional Gastrointestinal History: MULTIPLE ABD SURGERIES, ADHESIONS, ABDOMINAL PAIN Genitourinary History: Denies History Endocrine History: Denies History Musculoskeletal History: Back Pain, Back Injury, Other (please comment) Prosthesis or Implant: Yes (R hand) Additional Musculoskeletal History: 07/20/14 INJURY TO RIGHT THUMB WITH SURGERY THAT SAME DAY PERFORMED BY DR NOONAN/LOWER BACK INJURY, Chronic back pain Neurological History: Migraines Blood Disorders: Denies History Psychiatric History: Depression, Anxiety Disorders History of Sexually Transmitted Diseases: No Cancer History: Denies History History of MDRO: No History of Other Communicable Diseases: No Alcohol Use: Occasionally Substance Use Type: Marijuana, Other (please comment) Previous Surgical History: Yes Type / Date of Surgery: BLADDER SLING/ COMPLETE HYST/ LAMI L3-5/ ORIF RIGHT WRIST/ LEFT KNEE SCOPE x2/ TONSILLECTOMY/ LEFT FEMUR RODDING AND REMOVAL OF GARO/ BILAT OOPHORECTOMY 2014/REMOVAL OF R THUMB AT [facility] 2014/TUBAL/COLONOSCOPY/EGD / CHOLECYSTECTOMY Anesthesia Reactions: No Malignant Hyperthermia: No Significant Family History: Heart disease, Cancer, Hypertension Past Medical History Reviewed: Reviewed - No Changes ROS - Limitations ROS Limitations: No Limitations Constitution: REPORTS: Denies Symptoms Cardiovascular: REPORTS: Denies Cardiac Symptoms Respiratory: REPORTS: Denies Resp Symptoms Neurological: REPORTS: Denies Neuro Symptoms Gastrointestinal: REPORTS: Denies GI Symptoms Endocrine: REPORTS: Denies Symptoms Musculoskeletal: REPORTS: Joint Pain (Right fourth finger and over flexor tendon of this digit. Swelling of this digit with rubor, calor pain), Recent Injury (As above) Genitourinary: REPORTS: Denies Symptoms Eyes: REPORTS: Denies Symptoms ENT: REPORTS: Denies Symptoms Skin: REPORTS: Other (Swelling and redness and warmth right fourth finger) Lympathic: REPORTS: Denies Lympathic Symptoms Immunologic: POSITIVE: Denies Symptoms Psychiatric: POSITIVE: Denies Psych Symptoms Head Injury Physical Exam - General Appearance General Appearance: POSITIVE: Alert, Cooperative, No Acute Distress. NEGATIVE: No Evidence of Trauma (Puncture wound over proximal interphalangeal joint, volar aspect, right fourth finger) - HEENT Head / Face: POSITIVE: Atraumatic, Normal Inspection, No Facial Swelling - Pupil Size Pupil Size: 4 mm: Bilateral - Neuro / Psych Neuro / Psych: POSITIVE: Alert, Oriented x 3, Cooperative, Interactive, Mood Appropiate, Affect Appropriate Cranial Nerves: POSITIVE: Normal As Tested, No Evidence of Acute CVA Cerebellar: POSITIVE: Normal As Tested Sensorimotor: POSITIVE: No Motor Deficits, No Sensory Deficits, Reflexes Normal - Respiratory / CVS Respiratory / CVS: POSITIVE: Chest Non Tender, No Ecchymosis, Breath Sounds Normal, No Respiratory Distress, Heart Sounds Normal, Regular Rate/Rhythm Peripheral Pulses: Radial (R): 2+, Radial (L): 2+ - Extremities Extremity Assessment: Tender: (RUE), Signs / Symptoms of Infection Present: (RUE ) (see below), Abnormal ROM: (RUE) (see below), Erythema: (RUE) (see below), Swelling: (RUE) (see below) Additional Extremities Details: Examination of the extremities shows pain on palpation throughout the right fourth finger. The digit is swollen. There is palpable tenderness and swelling to the flexor tendon of this digit in the palm of the hand. Patient holds this digit in flexion and cannot extend this digit due to pain. Joint Exam: POSITIVE: Painful (All joints of the right fourth finger painful and swollen; patient unable to extend the joints of the right fourth finger due to pain) Images - Hands Hand: 1 - Pain on palpation; patient holds this digit in flexion Head Injury Progress - Results Reviewed by me Lab Results Reviewed: Yes Lab Results:: Laboratory Results 12/08/16 Range/Units 19:26 WBC 9.98 (4.8-10.8) 10^3/uL RBC 4.26 (4.20-5.40) 10^6/uL Hgb 12.9 (12.0-16.0) g/dL Hct 38.7 (37.0-47.0) % MCV 90.8 (81-99) FL MCH 30.3 (27-31) PG MCHC 33.3 (33-37) g/dL RDW Std Deviation 48.0 (39-50) fL RDW Coeff of Alyce 14.8 H (11.5-14.5) % Plt Count 221 (140-350) 10*3/uL MPV 9.1 (7.4-12.2) FL Immature Gran % (Auto) 0.1 (0-5) % Neut % (Auto) 64.5 (50-80) % Lymph % (Auto) 23.7 (10-50) % [place] % (Auto) 8.0 (5-15) % Eos % (Auto) 3.6 (0-8) % Baso % (Auto) 0.1 (0-1) % Immature Gran # (Auto) 0.01 10*3/UL Neut # (Auto) 6.43 10*3/UL Lymph # (Auto) 2.37 10*3/uL [place] # (Auto) 0.80 (0.3-0.8) 10*3/UL Eos # (Auto) 0.36 10*3/UL Baso # (Auto) 0.01 10*3/UL WBC Morphology Comment Normal morphology (NORM) Plt Morphology Comment Normal morphology (NORM) RBC Morph Comment Normal morphology (NORM) Sodium 129 L (135-145) meq/L Potassium 3.4 L (3.8-5.2) meq/L Chloride 101 (98-112) meq/L Carbon Dioxide 22 L (23-33) meq/L Anion Gap 6 (5-20) BUN 8 (7-22) mg/dL Creatinine 0.7 (0.50-1.20) mg/dL Estimated GFR > 60 (>60 ml/min/1.73m(2)) BUN/Creatinine Ratio 11.42 (6-20) Glucose 115 H (78-110) mg/dL Calculated Osmolality 266.0 L (267-292) mOsm/kg Calcium 9.5 (8.7-10.7) mg/dL Total Bilirubin 0.4 (0.3-1.2) mg/dL AST 21 (8-39) IU/L ALT 24 (9-52) IU/L Alkaline Phosphatase 101 (38-126) IU/L Total Protein 7.3 (6.1-8.0) g/dL Albumin 4.4 (3.5-4.8) g/dL Globulin 2.9 (2.50-4.10) g/dL Albumin/Globulin Ratio 1.50 (1.3-2.0) mg/g - Patient's Progress Pain Medication Addressed: POSITIVE: Yes School/Work Release Addressed: POSITIVE: Not Applicable (Patient given Dilaudid 2 mg IV) Re-examine Time: 20:20 Status: POSITIVE: Unchanged, Re-Examined - Consult Consult (If Yes, Name of Consulting MD & Time Called): Yes (Dr. Noonan, orthopedist, 2019) Consulting MD will see pt:: POSITIVE: In ED Counseled: POSITIVE: Patient, RE: Lab Results, RE: DX, RE: Need for F/U Head Injury Impression - Clinical Impression Clinical Impression: POSITIVE: Other (Infected tenosynovitis, right fourth finger) Additional Information: Infected tenosynovitis, right fourth finger, - Continued Care Disposition: POSITIVE: Admitted Condition: POSITIVE: Unchanged Patient Care Time - Estimated PCT Patient Care Time (In Minutes): 30 Vital Signs - Recent Vital Signs Vital Signs: Vital Signs (Last 8 hours) Temp Pulse Resp BP 12/09/16 00:15 97.5 F 81 16 138/78 12/09/16 00:00 97.5 F 82 16 158/93 12/08/16 21:50 96.9 F 74 16 127/83 - VS Reviewed Vital Signs Reviewed: Yes Discharge Clinical Impression: Tenosynovitis of finger and hand Discharge Disposition: Transferred to OR Condition: Stable Date Decision to Admit to Inpatient: 12/08/16 Time Decision to Admit to Inpatient: 20:20
[2016-12-09] MEDS: KETOROLAC 30 MG/1 ML VIAL IVP PRN ×3 (01:40→18:51)
[2016-12-09] MEDS: NORMAL SALINE 10 ML SYRINGE FLUSH IVP PRN ×4 (01:40→22:46)
[2016-12-09] MEDS: Ampicillin/Sulbactam Inj 3 GM in Sodium Chloride 0.9% 100 ML IV SCH ×4 (02:15→19:04)
[2016-12-09] MEDS: MORPHINE SULFATE 2 MG/1 ML IVP PRN ×10 (03:31→22:46)
--- NOTE | 2016-12-09 11:13 | CRNA.PROGR ---
Anesthesia Note Anesthesia Progress Note: Ms. Borges is sitting up in bed watching tv at this time. Discussed the course of her anesthetic and her expectations and she has no questions at this time. She is able to lift her right arm and moves it above her head often. Her block has resolved and she has sensation present in all 5 digits. Vital Signs (Last 8 hours) Temp Pulse Resp BP Pulse Ox 12/09/16 07:01 97.7 F 65 18 124/76 98 12/09/16 07:00 18 12/09/16 05:44 96 12/09/16 05:00 98.7 F 66 20 134/66 97
[2016-12-09] MEDS ORDERED: NICOTINE 21 MG /DAY PATCH TRANSDERM ONE (12:21)
[2016-12-09] MEDS: NICOTINE 21 MG /DAY PATCH TRANSDERM SCH (12:28)
--- NOTE | 2016-12-09 14:31 | ORTHO.PROG ---
Last Taken Vital Signs: Vital Signs - Last Taken Temperature 97.1 F 12/09/16 11:49 Pulse Rate 61 12/09/16 11:49 Respiratory Rate 18 12/09/16 11:49 Blood Pressure 148/94 12/09/16 11:49 Pulse Ox 96 12/09/16 11:49 Subjective: Patient notes her pain is better today she does not have any pain in the forearm she still has pain in the finger but it is less than it was previously and it feels different than it did previously it's more of a burning type pain in the deep throbbing aching and uncontrolled pain has resolved Objective: The dressing has some dry blood on this otherwise looks reasonable she has good sensation to the fingers in general brisk refill she has a little numbness and decreased sensation diffusely to the ring finger but overall reasonable. Intake and Output - 8hrs 12/08/16 12/09/16 12/09/16 12/09/16 21:59 05:59 13:59 21:59 Intake: IV 200 1418 418 Output: Output, Urine Amount 500 500 Output, Estimated Blood 15 Loss Amount Other: Percent Meal Consumed Refused Weight 96.615 kg 96.615 kg Weight Measurement Method Standing Scale Standing Scale Vital Signs (24 hrs) Temp Pulse Pulse Pulse Resp BP BP 12/09/16 11:49 97.1 F 61 18 148/94 12/09/16 07:01 97.7 F 65 18 124/76 12/09/16 07:00 18 12/09/16 05:44 12/09/16 05:00 98.7 F 66 20 134/66 12/09/16 02:45 98.7 F 74 21 131/87 12/09/16 01:15 98.0 F 74 20 126/75 12/09/16 00:49 71 18 12/09/16 00:45 98.0 F 73 20 116/64 12/09/16 00:30 98.1 F 75 18 125/76 12/09/16 00:15 97.5 F 81 16 138/78 12/09/16 00:00 97.5 F 82 16 158/93 12/08/16 21:50 96.9 F 74 16 127/83 12/08/16 18:58 97.2 F 101 H 18 145/102 Pulse Ox 12/09/16 11:49 96 12/09/16 07:01 98 12/09/16 07:00 12/09/16 05:44 96 12/09/16 05:00 97 12/09/16 02:45 96 12/09/16 01:15 97 12/09/16 00:49 12/09/16 00:45 98 12/09/16 00:30 96 12/09/16 00:15 12/09/16 00:00 12/08/16 21:50 12/08/16 18:58 Laboratory Results 12/08/16 Range/Units 19:26 WBC 9.98 (4.8-10.8) 10^3/uL RBC 4.26 (4.20-5.40) 10^6/uL Hgb 12.9 (12.0-16.0) g/dL Hct 38.7 (37.0-47.0) % MCV 90.8 (81-99) FL MCH 30.3 (27-31) PG MCHC 33.3 (33-37) g/dL RDW Std Deviation 48.0 (39-50) fL RDW Coeff of Alyce 14.8 H (11.5-14.5) % Plt Count 221 (140-350) 10*3/uL MPV 9.1 (7.4-12.2) FL Immature Gran % (Auto) 0.1 (0-5) % Neut % (Auto) 64.5 (50-80) % Lymph % (Auto) 23.7 (10-50) % [place] % (Auto) 8.0 (5-15) % Eos % (Auto) 3.6 (0-8) % Baso % (Auto) 0.1 (0-1) % Immature Gran # (Auto) 0.01 10*3/UL Neut # (Auto) 6.43 10*3/UL Lymph # (Auto) 2.37 10*3/uL [place] # (Auto) 0.80 (0.3-0.8) 10*3/UL Eos # (Auto) 0.36 10*3/UL Baso # (Auto) 0.01 10*3/UL WBC Morphology Comment Normal morphology (NORM) Plt Morphology Comment Normal morphology (NORM) RBC Morph Comment Normal morphology (NORM) Sodium 129 L (135-145) meq/L Potassium 3.4 L (3.8-5.2) meq/L Chloride 101 (98-112) meq/L Carbon Dioxide 22 L (23-33) meq/L Anion Gap 6 (5-20) BUN 8 (7-22) mg/dL Creatinine 0.7 (0.50-1.20) mg/dL Estimated GFR > 60 (>60 ml/min/1.73m(2)) BUN/Creatinine Ratio 11.42 (6-20) Glucose 115 H (78-110) mg/dL Calculated Osmolality 266.0 L (267-292) mOsm/kg Calcium 9.5 (8.7-10.7) mg/dL Total Bilirubin 0.4 (0.3-1.2) mg/dL AST 21 (8-39) IU/L ALT 24 (9-52) IU/L Alkaline Phosphatase 101 (38-126) IU/L Total Protein 7.3 (6.1-8.0) g/dL Albumin 4.4 (3.5-4.8) g/dL Globulin 2.9 (2.50-4.10) g/dL Albumin/Globulin Ratio 1.50 (1.3-2.0) mg/g Microbiology 12/09/16 00:10 Finger - Right Ring Gram Stain - Final Gram stain shows gram-positive cocci in pairs Assessment: Right ring finger suppurative flexor tenosynovitis Plan: Continue with Unasyn 3 g IV every 6 hours Pain control (Dressing changes and physical therapy tomorrow. Discussed with patient depending on appearance of finger may wish to consider a second washout.
[2016-12-09] MEDS: HYDROcodone-APAP 10 MG-325 MG TABLET PO PRN ×2 (17:43→22:45)
[2016-12-10] MEDS: NORMAL SALINE 10 ML SYRINGE FLUSH IVP PRN ×2 (00:31→23:14)
[2016-12-10] MEDS: KETOROLAC 30 MG/1 ML VIAL IVP PRN ×3 (00:32→19:05)
[2016-12-10] MEDS: ONDANSETRON 4 MG/2 ML VIAL IVP PRN ×2 (00:32→17:43)
[2016-12-10] MEDS: MORPHINE SULFATE 2 MG/1 ML IVP PRN ×9 (00:32→23:13)
[2016-12-10] MEDS: Ampicillin/Sulbactam Inj 3 GM in Sodium Chloride 0.9% 100 ML IV SCH ×4 (01:25→19:16)
[2016-12-10] MEDS: HYDROcodone-APAP 10 MG-325 MG TABLET PO PRN ×5 (04:14→23:14)
[2016-12-10] MEDS: Lactated Ringers 1,000 ML PRIMARY IV SCH (08:25)
[2016-12-10] MEDS: NICOTINE 21 MG /DAY PATCH TRANSDERM SCH (09:01)
[2016-12-10] MEDS: REMOVAL NICOTINE TRANSDERM SCH (09:02)
[2016-12-10] MEDS ORDERED: HYDROcodone-APAP 10 MG-325 MG TABLET PO PRN (11:27)
[2016-12-10] MEDS ORDERED: LORAZEPAM PO PRN (11:27)
[2016-12-10] MEDS ORDERED: LORazepam 2 MG/1 ML VIAL IVP ONE (11:32)
--- NOTE | 2016-12-10 13:57 | ORTHO.PROG ---
Last Taken Vital Signs: Vital Signs - Last Taken Temperature 97.6 F 12/10/16 12:06 Pulse Rate 65 12/10/16 12:06 Respiratory Rate 20 12/10/16 12:06 Blood Pressure 158/101 12/10/16 12:06 Pulse Ox 93 12/10/16 12:06 Subjective: Patient notes pain is less today and had a dressing change with therapy and is working on range of motion. Passively able to get to full extension in therapy. Objective: Dressing is clean and dry did not see the wounds apparently they had maceration of the small finger and palm region otherwise look good no marked issues. Vital Signs (24 hrs) Temp Pulse Pulse Resp BP Pulse Ox 12/10/16 12:06 97.6 F 65 20 158/101 93 12/10/16 08:02 97 F 76 20 143/95 92 12/10/16 04:46 97.8 F 60 20 146/90 94 12/10/16 04:06 93 12/10/16 00:27 97.8 F 57 L 18 172/105 96 12/09/16 20:06 97.2 F 61 18 160/95 95 12/09/16 19:00 62 18 12/09/16 17:00 98.4 F 69 18 161/101 96 Microbiology 12/09/16 00:10 Finger - Right Ring Gram Stain - Final 12/09/16 00:10 Finger - Right Ring Aerobic Culture - Preliminary 12/08/16 19:41 Blood Blood Culture - Preliminary NO GROWTH AFTER 24 HOURS 12/08/16 19:30 Blood Blood Culture - Preliminary NO GROWTH AFTER 24 HOURS Preliminary culture is gram-positive cocci Assessment: Right ring finger suppurative flexor tenosynovitis improving Plan: We will continue with IV antibiotics at the current time. Some of the patient's home medications did not get transferred in we will start these including lorazepam, and amitriptyline hopefully these will help the patient. We will await the final culture results and sensitivities for antibiotic choice. Continue physical therapy
[2016-12-10] MEDS: LORazepam 1 MG TABLET PO PRN (15:54)
--- NOTE | 2016-12-10 18:07 | CONSULT ---
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 Noonan orthopedic surgeon brought her to the ER for a washout and is on IV antibiotics. I was consulted for hypertension management we have started Norvasc earlier today blood pressures come down nicely her headache is resolved. Denies any heavy drinking but did drink occasionally Past Medical History Medical History: Anxiety, lower back arthritis Tobacco Use: Current Every Day Smoker Substance Use Type: Marijuana, Other (please comment) Alcohol Use: None Review of Systems - Review of Systems All Systems: Reviewed & No Additional Complaints Except as Stated - Respiratory Respiratory: DENIES: Negative System Review, Cough, Sputum, Dyspnea At Rest, Dyspnea with Exertion, Pleuritic Pain, Hemoptysis, Wheezing, Other, See HPI - Cardiovascular Cardiovascular: DENIES: Negative System Review, Chest Pain, Edema, Syncope, Palpitations, Orthopnea, Paroxysmal Nocturnal Dyspnea, Other, See HPI - Gastrointestinal Gastrointestinal / Abdominal: DENIES: Negative System Review, Nausea, Vomiting, Diarrhea, Constipation, Abdominal Pain, Bloody Stool, Poor Appetite, Heartburn, Regurgitation, Bloating, Lactose Intolerance, Melena, Bright Red Blood Per Rectum, Other, See HPI Medication / Allergies Home Medications: Home Medications Medication Instructions Recorded Confirmed Type Lorazepam 1 tab PO TID PRN #90 tab 10/03/16 12/08/16 Clinic Melatonin 20 mg SL BEDTIME tab 10/03/16 12/08/16 History Naproxen Na-Diphenhydramin HCl 1 tab PO at bedtime tab 10/03/16 12/08/16 History [Aleve Pm Caplet] Amitriptyline HCl 1 tab PO BID #120 tab 11/02/16 12/08/16 Clinic Niacinamide 1,000 mg PO QD tab 11/02/16 12/08/16 History Valacyclovir HCl [Valacyclovir] 1 unit PO BID #20 tab 11/02/16 12/08/16 Clinic Vitamin B Complex 1 each PO QD cap 11/02/16 12/08/16 History HYDROcodone/APAP 10325 Tab 1 tab PO Q4H PRN #25 tab 11/05/16 12/08/16 Rx [[place] 10/325 Tab] Allergies/Adverse Reactions: Allergies Allergy/AdvReac Type Severity Reaction Status Date / Time azithromycin [From Zithromax] Allergy Mild facial Verified 12/09/16 20:17 redness/swelling, hives Exam - Vitals Vital Signs: Vital Signs Temperature 98.2 F Temperature Source Oral Pulse Rate [Pulse Oximeter] 63 Pulse Rate [Apical] 62 Respiratory Rate 20 Blood Pressure [Left Arm] 154/105 Pulse Ox 93 Oxygen Flow Rate 1 Oxygen Delivery Method Room Air Height 5 ft 5 in Weight 97.976 kg - General General Appearance: POSITIVE: No Acute Distress, Cooperative - Eye Eye Exam: POSITIVE: Normal Appearance - Respiratory Respiratory Exam: POSITIVE: Clear to Auscultation - Bilaterally, Breathing Non Labored - Cardiovascular Cardiovascular Exam: POSITIVE: RRR, No Murmur, No Clicks - GI/Abdominal GI/Abdominal Exam: POSITIVE: Normal Bowel Sounds, Non Tender, Non Distended, Soft - Extremities Extremities Exam: POSITIVE: No Clubbing Present, No Edema Present, No Cyanosis Present - Neurological Neurological Exam: POSITIVE: Alert, Oriented x 3, Reflexes Normal, Normal Gait Results - Labs CBC and BMP: 12/08/16 19:26 12/08/16 19:26 Assessment and Plan - Patient Problems (1) Tenosynovitis of finger and hand Current Visit: Yes Status: Acute Comment: Defer this issue with Dr. Noonan (2) Headache Current Visit: No Status: Acute Comment: Slightly secondary to the headache it to the high blood pressure but also patient has a history of migraines we'll start Norvasc 10 mg daily check a TSH (3) HTN (hypertension) Current Visit: Yes Status: Acute Comment: Norvasc 10 mg first dose now
[2016-12-10] MEDS: AMITRIPTYLINE 25 MG TABLET PO SCH (20:48)
[2016-12-10] MEDS: valACYclovir Tab 500 MG TAB PO SCH (20:48)
[2016-12-10] MEDS ORDERED: AMITRIPTYLINE HCL PO SCH (21:00)
[2016-12-10] MEDS ORDERED: HYDROmorphone 2 MG/1 ML ONE (23:09)
[2016-12-11] MEDS: ONDANSETRON 4 MG/2 ML VIAL IVP PRN (00:26)
[2016-12-11] MEDS ORDERED: LABETALOL 20 MG/4 ML (5 MG/1 ML) SYRINGE IVP PRN (01:01)
[2016-12-11] MEDS: KETOROLAC 30 MG/1 ML VIAL IVP PRN ×3 (01:39→19:33)
[2016-12-11] MEDS: NORMAL SALINE 10 ML SYRINGE FLUSH IVP PRN ×5 (01:40→19:33)
[2016-12-11] MEDS: Ampicillin/Sulbactam Inj 3 GM in Sodium Chloride 0.9% 100 ML IV SCH ×3 (01:40→12:49)
[2016-12-11] MEDS: HYDROcodone-APAP 10 MG-325 MG TABLET PO PRN ×5 (03:50→21:20)
[2016-12-11] MEDS: REMOVAL NICOTINE TRANSDERM SCH ×2 (03:51→08:10)
[2016-12-11] MEDS: MORPHINE SULFATE 2 MG/1 ML IVP PRN (06:00)
[2016-12-11] MEDS: TAMSULOSIN 0.4 MG CAPSULE PO SCH (08:08)
[2016-12-11] MEDS: valACYclovir Tab 500 MG TAB PO SCH ×2 (08:08→21:20)
[2016-12-11] MEDS: AMITRIPTYLINE 25 MG TABLET PO SCH ×2 (08:09→21:20)
[2016-12-11] MEDS ORDERED: MELATONIN 20 MG SL SCH ×2 (09:00→21:00)
[2016-12-11] MEDS: VITAMIN B COMPLEX PO SCH (09:33)
[2016-12-11] MEDS ORDERED: SUMAtriptan Succinate 6 MG/0.5 ML SUBCUT ONE (09:52)
--- NOTE | 2016-12-11 11:16 | OT.PROG ---
Progress Note Progress Note: S: pt was in bed upon arrival. pt reported that her hand hurt really bad after therapy yesterday, but had just reciebed oral pain meds but no moraphine due to having a headache. O; wound was undressed, the wound had drainage in both the palm as well as the ring finger. PROM was performed in all fingers, focused mainly on the 4th finger. joint blocking performed. MCP and DIP have full extension, increased pain and tightness with a max extension of -30 degrees on PIP. wrist felxion and extension also performed with good range. dressing redressed with gauze, kerlex and crystal bandage. A: pt tolerate movement although PIP movement is the most painful. P: Cont to complete PROM in all fingers and dressing changes
--- NOTE | 2016-12-11 11:49 | OTI REPORT ---
Thank you for the referral of Afshin Borges. She was seen on 12/10/16 for an occupational therapy inpatient evaluation. SUBJECTIVE: The patient is a 46-year-old female who came into the ER on Sunday after experiencing increasing pain and swelling in her right finger. 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 She did start having pain and discomfort and ended up coming in to the ER. It was determined that the patient had right hand flexor tenosynovitis in the ring finger. Dr. Noonan then opened up her hand and cleaned out the infection. The patient is an inpatient at this time for pain control and antibiotics. The patient does live alone here in town. 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 The patient is quite upset. She is not sure how she is going to work when her hand is this badly damaged. PAST MEDICAL HISTORY: Past medical history can be found in the patient's medical record. OBJECTIVE FINDINGS: General observations: Upon OT arrival, the patient was bandaged up to her fingertips. We did remove the bandage. The patient's palm and fifth finger as well as around the ring finger incision are open; it was not sutured shut and she is quite macerated. We did clean the area. Range of motion: Range of motion was performed on all five fingers as well as joint blocking on the fourth finger. The therapist was able to get approximately -20 degrees of extension on the MCP, PIP, and DIP joints of the fourth finger and approximately 70 degrees of PIP flexion, 30 degrees of DIP flexion, and 30 degrees of MCP flexion. Pain: The patient reported a pain level of 9/10 on the verbal analog scale (0= no pain, 10=worst pain) throughout range of motion. ASSESSMENT: Problem List: Increased pain of the right hand Decreased range of motion of the right hand Occupational Therapy Goals: To be met by discharge from inpatient: Patient will be able to tolerate range of motion in all five fingers and increase right finger extension to neutral and right fourth finger flexion MCP to 40 degrees, PIP to 90 degrees, and DIP to 40 degrees. Patient will be able to complete all ADLs independently. Patient will be able to complete all functional transfers independently. TREATMENT PLAN: Patient will be seen B.I.D during the week and one time per day over the weekend as an inpatient to address the above goals and objectives. INITIAL TREATMENT: Treatment today consisted of the initial evaluation. We did remove the bandage on the patient's hand. The patient's palm and fifth finger as well as the area around the ring finger incision are open; it was not sutured shut and she is quite macerated. We did clean the area. The patient's hand was re-bandaged and wrapped with gauze and an JESSICA bandage. SEYMOUR
--- NOTE | 2016-12-11 15:41 | PDOC(PROG) ---
Date and Time of Service: 12/11/2016, 1535 Interval History: Headaches have resolved with cessation of morphine therapy. No chest pain and no trouble breathing. States her pain in her hand is controlled. I reviewed all the cultures with the patient today, and she has group C strep. Rocephin should be adequate to cover that, but I will discuss with infectious disease. She states generally speaking that she is hypertensive when she is in pain. She has a scription for Norvasc at home, but does not normally take that. Objective : Data - Labs CBC and BMP: 12/08/16 19:26 12/08/16 19:26 Labs - Last 24 Hours: Laboratory Results 12/11/16 Range/Units 07:15 TSH 2.38 (0.2700-4.2000) uIU/mL Laboratory Results 12/08/16 12/11/16 Range/Units 19:26 07:15 WBC 9.98 (4.8-10.8) 10^3/uL RBC 4.26 (4.20-5.40) 10^6/uL Hgb 12.9 (12.0-16.0) g/dL Hct 38.7 (37.0-47.0) % MCV 90.8 (81-99) FL MCH 30.3 (27-31) PG MCHC 33.3 (33-37) g/dL RDW Std Deviation 48.0 (39-50) fL RDW Coeff of Alyce 14.8 H (11.5-14.5) % Plt Count 221 (140-350) 10*3/uL MPV 9.1 (7.4-12.2) FL Immature Gran % (Auto) 0.1 (0-5) % Neut % (Auto) 64.5 (50-80) % Lymph % (Auto) 23.7 (10-50) % [place] % (Auto) 8.0 (5-15) % Eos % (Auto) 3.6 (0-8) % Baso % (Auto) 0.1 (0-1) % Immature Gran # (Auto) 0.01 10*3/UL Neut # (Auto) 6.43 10*3/UL Lymph # (Auto) 2.37 10*3/uL [place] # (Auto) 0.80 (0.3-0.8) 10*3/UL Eos # (Auto) 0.36 10*3/UL Baso # (Auto) 0.01 10*3/UL WBC Morphology Comment Normal morphology (NORM) Plt Morphology Comment Normal morphology (NORM) RBC Morph Comment Normal morphology (NORM) Sodium 129 L (135-145) meq/L Potassium 3.4 L (3.8-5.2) meq/L Chloride 101 (98-112) meq/L Carbon Dioxide 22 L (23-33) meq/L Anion Gap 6 (5-20) BUN 8 (7-22) mg/dL Creatinine 0.7 (0.50-1.20) mg/dL Estimated GFR > 60 (>60 ml/min/1.73m(2)) BUN/Creatinine Ratio 11.42 (6-20) Glucose 115 H (78-110) mg/dL Calculated Osmolality 266.0 L (267-292) mOsm/kg Calcium 9.5 (8.7-10.7) mg/dL Total Bilirubin 0.4 (0.3-1.2) mg/dL AST 21 (8-39) IU/L ALT 24 (9-52) IU/L Alkaline Phosphatase 101 (38-126) IU/L Total Protein 7.3 (6.1-8.0) g/dL Albumin 4.4 (3.5-4.8) g/dL Globulin 2.9 (2.50-4.10) g/dL Albumin/Globulin Ratio 1.50 (1.3-2.0) mg/g TSH 2.38 (0.2700-4.2000) uIU/mL Objective : Exam - General General Appearance: No Acute Distress, Cooperative Additional General Exam Details: Vital Signs - Last Taken Temperature 96.0 F L 12/11/16 12:30 Pulse Rate 66 12/11/16 12:30 Respiratory Rate 16 12/11/16 12:30 Blood Pressure 149/97 12/11/16 12:30 Pulse Ox 92 12/11/16 12:30 - Respiratory Respiratory Exam: Clear to Auscultation - Bilaterally, Breathing Non Labored - Cardiovascular Cardiovascular Exam: RRR, No Murmur, No Clicks, No Gallops, No Rubs, No JVD - GI/Abdominal GI/Abdominal Exam: Normal Bowel Sounds, Non Tender, Non Distended, Soft - Extremities Extremities Exam: No Clubbing Present, No Edema Present, No Cyanosis Present Additional Extremities Exam Details: Right-hand dressed, dressing is clean, dry, intact - Neurological Neurological Exam: Alert, Oriented x 3, No Facial Droop, Speech Intact / Clear, Moves All Extremities Equally Assessment and Plan - Patient Problems (1) HTN (hypertension) Current Visit: Yes Status: Acute Qualifiers: Hypertension type: essential hypertension Qualified Description: Essential hypertension Qualifier Code(s): (I10) Essential (primary) hypertension (2) Tenosynovitis of finger and hand Current Visit: Yes Status: Acute - Assessment / Plan Additional Assessment/Plan Details: In terms of the hypertension, I think we should continue when necessary medications, but at time of discharge, arrange for blood pressure checks to be done about 3 weeks postdischarge and do those on a weekly basis to get the determination of whether this is truly hypertension, or elevated blood pressure in the setting of pain. Headaches have resolved and I think patient should stay off morphine for now. In terms of antibiotics I suggest we de-escalate to Rocephin, I have a call into infectious disease to discuss further including length or duration of therapy. We will help arrange follow-up with infectious disease doctors as well. Wound care as per orthopedics.
[2016-12-11] MEDS: NICOTINE 21 MG /DAY PATCH TRANSDERM SCH (15:56)
[2016-12-11] MEDS ORDERED: HEPARIN 500 UNIT/5 ML SYRINGE FOR CENTRAL LINE IVP PRN (15:59)
[2016-12-11] MEDS ORDERED: LIDOCAINE 2% 20 MG/ML - 20 ML VIAL SUBCUT PRN (15:59)
[2016-12-11] MEDS ORDERED: Lidocaine 1% 10 MG/ML - 20 ML VIAL SUBCUT PRN (15:59)
[2016-12-11] MEDS ORDERED: NORMAL SALINE 10 ML SYRINGE FLUSH IV PRN (15:59)
[2016-12-11] MEDS: cefTRIAXone Inj 2 GM in Sodium Chloride 0.9% 100 ML IV SCH (17:09)
--- NOTE | 2016-12-11 17:33 | ORTHO.PROG ---
Last Taken Vital Signs: Vital Signs - Last Taken Temperature 96.8 F 12/11/16 16:39 Pulse Rate 72 12/11/16 16:39 Respiratory Rate 16 12/11/16 16:39 Blood Pressure 125/82 12/11/16 16:39 Pulse Ox 96 12/11/16 16:39 Subjective: Patient notes that her pain has improved but she still using hydrocodone 2024 2 every 4 hours. She notes is getting easier to move the fingers. Objective: Examination shows that the sensory exam to the ring finger small finger and the other digits is normal she can get close to full extension but does have pain around the finger in general does not have pain in the palm. She can flex the fingers about 70 MCP PIP and DIP about 30. Sensory exam is intact. Aerobic cultures are growing a group C strep, anaerobic cultures no growth Assessment: Her right ring finger suppurative flexor tenosynovitis, status post incision and drainage and decompression. Patient also underwent synovectomy mid palm all the way down to just below the A1 bharathi and then from the PIP joint distally. Plan: Patient will have a PICC line placed, the organisms are sensitive to Rocephin and we will give her a once a day dosing for anywhere between 2-4 weeks and recommendations of infectious disease. We'll see about possibly getting her home tomorrow. Continue with pain medication as needed but also discussed with the patient we want to try and wean her down off of these medications.
[2016-12-11] MEDS: LORazepam 1 MG TABLET PO PRN (19:29)
[2016-12-12] MEDS: HYDROcodone-APAP 10 MG-325 MG TABLET PO PRN ×4 (01:31→12:14)
[2016-12-12] MEDS: KETOROLAC 30 MG/1 ML VIAL IVP PRN ×2 (04:30→12:14)
[2016-12-12] MEDS: NICOTINE 21 MG /DAY PATCH TRANSDERM SCH (08:42)
[2016-12-12] MEDS: AMITRIPTYLINE 25 MG TABLET PO SCH (08:43)
[2016-12-12] MEDS: valACYclovir Tab 500 MG TAB PO SCH (08:43)
[2016-12-12] MEDS: TAMSULOSIN 0.4 MG CAPSULE PO SCH (08:44)
[2016-12-12] MEDS: VITAMIN B COMPLEX PO SCH (09:40)
[2016-12-12] MEDS: REMOVAL NICOTINE TRANSDERM SCH (09:40)
[2016-12-12] MEDS: LORazepam 1 MG TABLET PO PRN (10:52)
[2016-12-12] MEDS ORDERED: DOCUSATE 100 MG CAPSULE PO PRN (11:40)
[2016-12-12] MEDS ORDERED: POLYETHYLENE GLYCOL 3350 17 GM POWDER PO ONE (11:41)
--- NOTE | 2016-12-12 11:50 | DI ---
AP CHEST X-RAY, 12/12/2016 7:40 AM : Clinical History: Infected right hand. The patient will require long-term IV antibiotic therapy. Veri fication of PICC line catheter tip placement. Previous Exam: 09/02/2016. There is no acute soft tissue or bony abnormality. Heart size is normal for this supine position. Paola gs are clear. Mediastinal structures are normal. There are no pulmonary nodules. The catheter tip is in the midportion of the superior vena cava. The catheter was advanced 2 more centimeters prior to se curing the catheter to the patient's arm. Reading: Normal chest x-ray. The catheter tip was in the midportion of the superior vena cava and it was advan kelvin 2 cm.
[2016-12-12 11:52] VITALS: RESP 17; TEMP 98
[2016-12-12] MEDS: NORMAL SALINE 10 ML SYRINGE FLUSH IVP PRN ×2 (12:14→13:11)
[2016-12-12] MEDS ORDERED: cefTRIAXone Inj 2 GM in Sodium Chloride 0.9% 100 ML IV ONE (12:54)
--- NOTE | 2016-12-12 14:41 | DCSUMMARY ---
Hospitalization Summary Admit Date: 12/08/16 Discharge Date: 12/12/16 Primary Diagnosis:: tenosynovitis Hospital Course: This very pleasant 46-year-old female with an underlying history of elevated blood pressure without the diagnosis of hypertension, tobacco abuse, and she was admitted with complaints of finger pain on her right hand and redness. It was deemed that it was an infection and the patient was taken operating room and found to have a tenosynovitis. Cultures grew out group C Streptococcus, and she was placed on Rocephin yesterday for that. She had been on Invanz and Unasyn up to that point. I discussed with infectious disease doctor and they recommended anywhere from 2-4 weeks of IV antibiotics due to it being a joint infection, and discussed with the patient. We placed a PICC line this morning, and she is on day 2 of Rocephin today. We were able to arrange outpatient antibiotics to be done here, wound care to be done with the [facility], and she can follow up with orthopedics as well. We'll help the patient establish primary care with Jazz Wilson PA-C, for continued blood pressure checks to determine if the patient truly does have hypertension. Patient's pain was well-controlled with hydrocodone. She had trouble with morphine causing severe headaches. Today, she states that her pains controlled and her hand, no chest pain, no shortness breath, no nausea or vomiting, and patient is "ready to go home". Assessment and Plan: 1. As per discharge assessments noted 2. Disposition: Patient is discharged home. 3. Condition on discharge, stable and improved. 4. Diet: regular diet 5. Activities: Return to work when cleared by orthopedics. 6. Follow-Up: 1. Primary care provider one week 2. Orthopedics in 1 week 3. Infectious disease in 1-2 weeks. 7. Medications at the Time of Discharge: Home Medications Medication Instructions Recorded Confirmed Type Lorazepam 1 tab PO TID PRN #90 tab 10/03/16 12/08/16 Clinic Melatonin 20 mg SL BEDTIME tab 10/03/16 12/08/16 History Naproxen Na-Diphenhydramin HCl 1 tab PO at bedtime tab 10/03/16 12/08/16 History [Paige Sage] Amitriptyline HCl 1 tab PO BID #120 tab 11/02/16 12/08/16 Clinic Niacinamide 1,000 mg PO QD tab 11/02/16 12/08/16 History Valacyclovir HCl [Valacyclovir] 1 unit PO BID #20 tab 11/02/16 12/08/16 Clinic Vitamin B Complex 1 each PO QD cap 11/02/16 12/08/16 History Docusate Sodium [Colace] 100 mg PO BID PRN #60 cap 12/12/16 Rx HYDROcodone/APAP 10/325 Tab 1 - 2 tab PO Q4H PRN #60 tab 12/12/16 Rx [[place] 10/325 Tab] Polyeth Glycol 3350 Packet 17 gm PO DAILY #30 powd.pack 12/12/16 Rx [Miralax Packet] cefTRIAXone Inj [Rocephin Inj] 2 gm IV Q24H #30 vial 12/12/16 Rx 8. Time, care, counseling and coordination of care for this discharge is greater than 30 minutes. Exam - Vitals Vital Signs: Vital Signs Temperature 98 F Temperature Source Temporal Artery Scan Pulse Rate [Pulse Oximeter] 59 Pulse Rate [Apical] 64 Respiratory Rate 17 Blood Pressure [Left Arm] 130/81 Pulse Ox 96 Oxygen Flow Rate 1 Oxygen Delivery Method Room Air Height 5 ft 5 in Weight 202 lb 11.2 oz - General General Appearance: POSITIVE: No Acute Distress, Cooperative - Eye Eye Exam: POSITIVE: No Scleral Icterus - Respiratory Respiratory Exam: POSITIVE: Clear to Auscultation - Bilaterally, Breathing Non Labored - Cardiovascular Cardiovascular Exam: POSITIVE: RRR, No Murmur, No Clicks, No Gallops, No Rubs, No JVD - GI/Abdominal GI/Abdominal Exam: POSITIVE: Normal Bowel Sounds, Non Tender, Non Distended, Soft - Neurological Neurological Exam: POSITIVE: Alert, Oriented x 3, No Facial Droop, Speech Intact / Clear, Moves All Extremities Equally Data Perinent Studies: Laboratory Results 12/08/16 12/11/16 Range/Units 19:26 07:15 WBC 9.98 (4.8-10.8) 10^3/uL RBC 4.26 (4.20-5.40) 10^6/uL Hgb 12.9 (12.0-16.0) g/dL Hct 38.7 (37.0-47.0) % MCV 90.8 (81-99) FL MCH 30.3 (27-31) PG MCHC 33.3 (33-37) g/dL RDW Std Deviation 48.0 (39-50) fL RDW Coeff of Alyce 14.8 H (11.5-14.5) % Plt Count 221 (140-350) 10*3/uL MPV 9.1 (7.4-12.2) FL Immature Gran % (Auto) 0.1 (0-5) % Neut % (Auto) 64.5 (50-80) % Lymph % (Auto) 23.7 (10-50) % [place] % (Auto) 8.0 (5-15) % Eos % (Auto) 3.6 (0-8) % Baso % (Auto) 0.1 (0-1) % Immature Gran # (Auto) 0.01 10*3/UL Neut # (Auto) 6.43 10*3/UL Lymph # (Auto) 2.37 10*3/uL [place] # (Auto) 0.80 (0.3-0.8) 10*3/UL Eos # (Auto) 0.36 10*3/UL Baso # (Auto) 0.01 10*3/UL WBC Morphology Comment Normal morphology (NORM) Plt Morphology Comment Normal morphology (NORM) RBC Morph Comment Normal morphology (NORM) Sodium 129 L (135-145) meq/L Potassium 3.4 L (3.8-5.2) meq/L Chloride 101 (98-112) meq/L Carbon Dioxide 22 L (23-33) meq/L Anion Gap 6 (5-20) BUN 8 (7-22) mg/dL Creatinine 0.7 (0.50-1.20) mg/dL Estimated GFR > 60 (>60 ml/min/1.73m(2)) BUN/Creatinine Ratio 11.42 (6-20) Glucose 115 H (78-110) mg/dL Calculated Osmolality 266.0 L (267-292) mOsm/kg Calcium 9.5 (8.7-10.7) mg/dL Total Bilirubin 0.4 (0.3-1.2) mg/dL AST 21 (8-39) IU/L ALT 24 (9-52) IU/L Alkaline Phosphatase 101 (38-126) IU/L Total Protein 7.3 (6.1-8.0) g/dL Albumin 4.4 (3.5-4.8) g/dL Globulin 2.9 (2.50-4.10) g/dL Albumin/Globulin Ratio 1.50 (1.3-2.0) mg/g TSH 2.38 (0.2700-4.2000) uIU/mL Procedures: See procedure note from Dr. Noonan regarding washout of tenosynovitis. Patient Problems - Patient Problem List (1) Tenosynovitis of finger and hand Current Visit: Yes Status: Acute (2) HTN (hypertension) Current Visit: Yes Status: Acute Qualifiers: Hypertension type: essential hypertension Qualified Description: Essential hypertension Qualifier Code(s): (I10) Essential (primary) hypertension
--- NOTE | 2016-12-12 14:47 | DI ---
ULTRASOUND GUIDED VENOUS ACCESS, 12/12/2016 7:40 AM Clinical History: Infected right hand. The patient will require long-term IV antibiotic therapy. Loca lization of left arm vein for PICC line placement. Previous Exam: None at this facility. 2D ultrasound was used to identify the left brachial vein for venous access to place a PICC line. The puncture site was prepped with ChloraPrep with Tint and draped in the usual sterile fashion. This ve in was successfully cannulated using realtime ultrasound guidance. The introducer sheath was advanced and positioned without difficulty. Reading: Successful and uncomplicated cannulation of the left brachial vein.
--- NOTE | 2016-12-12 14:47 | DI ---
INSERTION OF PICC LINE, 12/12/2016 7:40 AM: Clinical History: Infected right hand. The patient will require long-term IV antibiotic therapy. Technique: A "time out" session was performed to verify the patient's name and date of prior to obtaining informed signed consent prior for this procedure. The left arm was prepped with ChloraPrep with Tint. Venipuncture was achieved under sterile conditions as already described in the ultrasound report. A 5 [place] double lumen Bard Power Picc Solo PICC catheter was inserted without difficulty. The tip position was initially identified with an AP portable chest x-ray and then adjusted as necess horacio. The standard dry sterile dressing kit was used to secure the catheter. The patient tolerated the procedure well and was discharged in stable condition. Standard orders for wound care and dressing c hanges were written. Sight Mounter: Lenny Overton MD Preschool Associate Teacher: None. Complications/Medications: None. Reading: PICC line placement as above.
--- NOTE | 2016-12-12 16:16 | OT AM DAY ---
Diagnosis : Right Ring Finger Surgery AM - Occupational Therapy S: The patient reports that she doesn't necessarily like the open wounds in her hands. O: Today the therapist worked on range of motion with the patient including tendon gliding to the DIP, PIP, and MCP joints x20 repetitions each. We did contract and holds with finger flexion, composite flexion, and stretched for finger extension. She was missing approximately 5 degrees of PIP joint motion and was able to flex to approximately 100 degrees with passive flexion today. Actively the patient was able to go between 20 and 70 degrees of flexion at the PIP joint but she said this was improved. She has a very macerated hand at this point. Today we ended up putting PolyMem over the finger as well as the PolyMem pad over the palm of the hand to promote increased healing followed by gauze and an Leon bandage. She was encouraged to practice the finger blocking on her own, wrist range of motion, and passive range of motion for composite flexion, and to work on her finger extension. A: The patient has made some range of motion gains. Her wound is still open and draining. She was fit with another dressing today including PolyMem. She more than likely will be discharged today and will have to come in on an outpatient basis for her antibiotics and be seen daily or every other day for her dressing changes to her hand. P: Continue seeing patient BID during the week and one time per day over the weekend until discharge. SEYMOUR
[2016-12-12] MEDS: cefTRIAXone Inj 2 GM in Sodium Chloride 0.9% 100 ML IV SCH (16:17)
[2016-12-13] MEDS ORDERED: POLYETHYLENE GLYCOL 3350 17 GM POWDER PO SCH (09:00)
== END 2016-12-12 15:14 | disposition home or self-care (01) | DRG 514 ==
LOC: ER 18:58 → SDSC 21:48 → MED/SURG 12-09 00:25
PROVIDERS: ADMIT Orthopaedic Surgery; ATTEND Orthopaedic Surgery
PROC: 0L970ZZ Drainage of Right Hand Tendon, Open Approach (ICD-10-PCS; 2016-12-08)
PROC: 0RBW0ZZ Excision of Right Finger Phalangeal Joint, Open Approach (ICD-10-PCS; principal; 2016-12-08 22:30)
DX: M65.841 Other synovitis and tenosynovitis, right hand (principal); R51 Headache; I10 Essential (primary) hypertension
CPT/HCPCS: 36415; 36569; 71010; 76937; 80053; 84443; 85025; 87040; 87070; 87075; 87186; 87205; 94150; 94761; 96374; 97110; 97166; 99284; A4216; J0295; J0670; J0696; J1170; J1885; J2060; J2250; J2270; J2405; J3010; J3030; J7030; J7050; J7120; Q0163

== ENCOUNTER 2016-12-21 20:13 | Emergency (ER) | payer SELFPAY ==
[2016-12-21] MEDS ORDERED: ONDANSETRON 4 MG/2 ML VIAL IVP ONE (20:25)
[2016-12-21] MEDS ORDERED: MORPHINE SULFATE 2 MG/1 ML IVP ONE (20:25)
[2016-12-21] MEDS ORDERED: KETOROLAC 15 MG/1 ML VIAL IVP ONE (20:26)
[2016-12-21 20:29] VITALS: RESP 16; TEMP 96.7
[2016-12-21] MEDS ORDERED: HEPARIN 500 UNIT/5 ML SYRINGE FOR CENTRAL LINE IVP ONE (20:30)
[2016-12-21] MEDS: NORMAL SALINE 10 ML SYRINGE FLUSH IVP PRN ×2 (20:38→22:30)
--- NOTE | 2016-12-21 20:47 | PDOC ---
Upper Extremity Problem HPI - General Chief Complaint: Upper Extremity Problem/Injury Stated Complaint: POSSIBLE INFECTION IN LEFT HAND Date Seen by Provider: 12/21/16 Time Seen by Provider: 20:20 Source: POSITIVE: Patient Exam Limitations: POSITIVE: No limitations Nurse's Notes Reviewed & Considered: Yes - History of Present Illness Initial Comments: The patient is a 46-year-old female who presents to the emergency department with worsening right hand and wrist pain. 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 She underwent incision and drainage and washout per Dr. Noonan on December 08. She was in the hospital for several days on IV antibiotics. Her cultures grew out a group C strep and she was placed on IV Rocephin 2 g daily which she is still continuing. She last saw Dr. Noonan for follow-up on Sunday. She was supposed to see the infectious disease physicians on Sunday this week however there was a miscommunication about where her appointment was scheduled and she came to the clinic here and her appointment was in [place]. She was subsequently rescheduled to see them next Sunday. Over the last 24 hours she has developed increased pain and swelling in her right hand extending to her right wrist. She also has noticed some increased redness in the same area. She states that she did have some fevers last night. She also reports that she ran out of her 10 mg pain medication yesterday and has been taking some hydrocodone 7.5 without any relief. She does have a prior history of ORIF of the right wrist secondary to a wrist fracture in 2007. - Patient Home Medications Home Medications: Home Medications Lorazepam 1 tab PO TID PRN #90 tab 10/03/16 Melatonin 20 mg SL BEDTIME tab 10/03/16 Naproxen Na-Diphenhydramin HCl [Aleve Pm Caplet] 1 tab PO at bedtime tab Amitriptyline HCl 1 tab PO BID #120 tab 11/02/16 Niacinamide 1,000 mg PO QD tab 11/02/16 Valacyclovir HCl [Valacyclovir] 1 unit PO BID #20 tab 11/02/16 Vitamin B Complex 1 each PO QD cap 11/02/16 Docusate Sodium [Colace] 100 mg PO BID PRN #60 cap 12/12/16 Polyeth Glycol 3350 Packet [Miralax Packet] 17 gm PO DAILY #30 powd.pack cefTRIAXone Inj [Rocephin Inj] 2 gm IV Q24H #30 vial 12/12/16 Hydrocodone/Acetaminophen [Lortab 7.5-325 Mg Tablet] 1 tab PO Q4-6H PRN #40 tab 12/18/16 - Patient Allergies Allergies/Adverse Reactions: Allergies Allergy/AdvReac Type Severity Reaction Status Date / Time azithromycin [From Zithromax] Allergy Mild facial Verified 12/21/16 20:21 redness/swelling, hives Past Medical History - heen HEENT History: Other (please comment) Additional HEENT History: BROKEN FRONT TEETH Cardiovascular History: Denies History Respiratory History: Denies History Gastrointestinal History: Gallbladder Disease Additional Gastrointestinal History: MULTIPLE ABD SURGERIES, ADHESIONS, ABDOMINAL PAIN Genitourinary History: Denies History Endocrine History: Denies History Musculoskeletal History: Back Pain, Back Injury, Other (please comment) Prosthesis or Implant: Yes (R hand) Additional Musculoskeletal History: 07/20/14 INJURY TO RIGHT THUMB WITH SURGERY THAT SAME DAY PERFORMED BY DR NOONAN/LOWER BACK INJURY, Chronic back pain Neurological History: Migraines Blood Disorders: Denies History Psychiatric History: Depression, Anxiety Disorders History of Sexually Transmitted Diseases: No Female Reproductive History: Denies History Obstetrical History: Denies History Cancer History: Denies History In Past Year Been Physically Harmed or Verbally Threatened: No History of MDRO: No History of Other Communicable Diseases: No Tobacco Use: Current Every Day Smoker Alcohol Use: Occasionally Substance Use Type: Marijuana Previous Surgical History: Yes Type / Date of Surgery: BLADDER SLING/ COMPLETE HYST/ LAMI L3-5/ ORIF RIGHT WRIST/ LEFT KNEE SCOPE x2/ TONSILLECTOMY/ LEFT FEMUR RODDING AND REMOVAL OF GARO/ BILAT OOPHORECTOMY 2013/REMOVAL OF R THUMB AT [facility] 2013/TUBAL/COLONOSCOPY/EGD / CHOLECYSTECTOMY Anesthesia Reactions: No Malignant Hyperthermia: No Significant Family History: Heart disease, Cancer, Hypertension Past Medical History Reviewed: Reviewed - No Changes ROS - Limitations ROS Limitations: No Limitations Constitution: REPORTS: Fever (Last night). DENIES: Chills Cardiovascular: REPORTS: Denies Cardiac Symptoms Respiratory: REPORTS: Denies Resp Symptoms Neurological: REPORTS: Denies Neuro Symptoms Gastrointestinal: REPORTS: Denies GI Symptoms Upper Extremity Problem Exam - General Appearance General Appearance: POSITIVE: Alert, Cooperative, No Acute Distress - Upper Extremity Upper Extremity: POSITIVE: Other (Examination the right hand does reveal an open wound on the side of the ring finger and there is still some swelling and erythema to the ring finger itself, she also has an open zigzag wound to the palm of her right hand which is open and has very minimal drainage on her dressing that has been in place for almost 24 hours, there is no surrounding induration, there is some mild erythema extending towards the ulnar aspect of the wrist with some associated tenderness, she does have scars on the wrist from previous ORIF) Vascular: POSITIVE: No Vascular Compromise - Skin Skin: POSITIVE: No Rash - Neuro / Psych Peripheral Neuro Exam: POSITIVE: Sensation Normal, Motor Normal - HEENT HEENT: POSITIVE: Head Inspection Nml - Respiratory / CVS Respiratory / CVS: POSITIVE: No Respiratory Distress, Breath Sounds Normal, Regular Rate & Rhythm, Heart Sounds Normal Peripheral Pulses: Radial (R): 2+ Upper Ext Problem Progress - Results Reviewed by me Lab Results Reviewed: Yes Lab Results:: Laboratory Results 12/21/16 Range/Units 20:38 WBC 8.74 (4.8-10.8) 10^3/uL RBC 4.44 (4.20-5.40) 10^6/uL Hgb 13.6 (12.0-16.0) g/dL Hct 39.5 (37.0-47.0) % MCV 89.0 (81-99) FL MCH 30.6 (27-31) PG MCHC 34.4 (33-37) g/dL RDW Std Deviation 46.6 (39-50) fL RDW Coeff of Alyce 14.5 (11.5-14.5) % Plt Count 256 (140-350) 10*3/uL MPV 9.0 (7.4-12.2) FL Immature Gran % (Auto) 0.1 (0-5) % Neut % (Auto) 56.4 (50-80) % Lymph % (Auto) 34.2 (10-50) % [place] % (Auto) 6.9 (5-15) % Eos % (Auto) 2.2 (0-8) % Baso % (Auto) 0.2 (0-1) % Immature Gran # (Auto) 0.01 10*3/UL Neut # (Auto) 4.93 10*3/UL Lymph # (Auto) 2.99 10*3/uL [place] # (Auto) 0.60 (0.3-0.8) 10*3/UL Eos # (Auto) 0.19 10*3/UL Baso # (Auto) 0.02 10*3/UL WBC Morphology Comment Normal morphology (NORM) Plt Morphology Comment Normal morphology (NORM) RBC Morph Comment Normal morphology (NORM) ESR 22 H (0-20) MM/HR Sodium 138 (135-145) meq/L Potassium 4.0 (3.8-5.2) meq/L Chloride 103 (98-112) meq/L Carbon Dioxide 25 (23-33) meq/L Anion Gap 10 (5-20) BUN 9 (7-22) mg/dL Creatinine 0.6 (0.50-1.20) mg/dL Estimated GFR > 60 (>60 ml/min/1.73m(2)) BUN/Creatinine Ratio 15.00 (6-20) Glucose 109 (78-110) mg/dL Calculated Osmolality 285.0 (267-292) mOsm/kg Calcium 9.9 (8.7-10.7) mg/dL Total Bilirubin 0.3 (0.3-1.2) mg/dL AST 34 (8-39) IU/L ALT 32 (9-52) IU/L Alkaline Phosphatase 93 (38-126) IU/L C-Reactive Protein 1.6 H (0.0-0.9) mg/dL Total Protein 8.0 (6.1-8.0) g/dL Albumin 4.7 (3.5-4.8) g/dL Globulin 3.2 (2.50-4.10) g/dL Albumin/Globulin Ratio 1.40 (1.3-2.0) mg/g - Patient's Progress MDM / ED Course: She does have a PICC line in place. Repeat blood work including CBC, sedimentation rate and CRP were drawn. The patient was given Toradol 15 mg IV, morphine 2 mg IV and Zofran 4 mg IV for pain. Recent medical records were reviewed. Her CRP was 1.7 on Sunday of this week and is 1.6 today. Her white count remains normal today. I did discuss the patient with Dr. Green who is on- call for infectious disease at [facility] [place]. His recommendation was to give a dose of IV clindamycin and repeat an MRI and subsequently discuss the findings on MRI with orthopedics. We do not have MRI available at night and this would not be able to be arranged until tomorrow. I subsequently discussed the patient with Dr. Posadas who is on-call for [facility] in [place] as Dr. Noonan is out of town and unavailable. His recommendation was to have the patient is evaluated at their clinic by Dr. Palacios tomorrow. The patient was advised to remain NPO after midnight in case she were to require any type of surgical procedure when she is seen at their clinic tomorrow. These findings and recommendations were discussed with the patient. Dr. Posadas stated that their office would call her to arrange an appointment tomorrow. For tonight she will be discharged home with Percocet 10/325 which she can take as needed for pain. She is advised return to the emergency room if she develops increased pain or swelling, fever or chills, any worsening or change in symptoms. - Consult Counseled: POSITIVE: Patient, RE: Lab Results, RE: DX, RE: Need for F/U Patient Care Time - Estimated PCT Patient Care Time (In Minutes): 45 Vital Signs - Recent Vital Signs Vital Signs: Vital Signs (Last 8 hours) Temp Pulse Resp BP Pulse Ox 12/21/16 20:14 96.7 F L 99 16 151/101 97 - VS Reviewed Vital Signs Reviewed: Yes Discharge Clinical Impression: Tenosynovitis of finger and hand Discharge Disposition: Discharged to Home Condition: Stable Additional Instructions: [facility] will be calling you in the morning to arrange for an appointment with Dr. Palacios at their clinic tomorrow. Please do not drink or eat anything after midnight in case they need to consider doing any type of surgical procedure tomorrow. Return to the emergency room if increased pain or swelling, fevers or chills, any worsening or change in symptoms. You have been prescribed Percocet 10/325 which he can take one or 2 every 6 hours as needed for pain.
[2016-12-21 20:49] LABS: BASOPHILS # (AUTO) 0.02 10*3/UL; BASOPHILS % (AUTO) 0.2 % (0-1); EOSINOPHILS # (AUTO) 0.19 10*3/UL; EOSINOPHILS % (AUTO) 2.2 % (0-8); HEMATOCRIT 39.5 % (37.0-47.0); HEMOGLOBIN 13.6 g/dL (12.0-16.0); LYMPHOCYTES # (AUTO) 2.99 10*3/uL; MEAN CORPUSCULAR HEMOGLOBIN 30.6 PG (27-31); MEAN CORPUSCULAR HGB CONC 34.4 g/dL (33-37); MONOCYTES % (AUTO) 6.9 % (5-15); NEUTROPHILS # (AUTO) 4.93 10*3/UL; NEUTROPHILS % (AUTO) 56.4 % (50-80); RED BLOOD COUNT 4.44 10^6/uL (4.20-5.40)
[2016-12-21 20:52] LABS: PLATELET MORPHOLOGY COMMENT NORMAL MORPHOLOGY (NORM); RBC MORPHOLOGY COMMENT NORMAL MORPHOLOGY (NORM); WBC MORPHOLOGY COMMENT NORMAL MORPHOLOGY (NORM)
[2016-12-21 21:00] LABS: BLOOD UREA NITROGEN 9 mg/dL (7-22); CALCIUM 9.9 mg/dL (8.7-10.7); EST GLOMERULAR FILTRATION > 60 (>60 ml/min/1.73m(2)); SERUM ALBUMIN 4.7 g/dL (3.5-4.8)
[2016-12-21] MEDS ORDERED: Clindamycin 900mg (Premix) 900 MG in Dextrose 1 BAG IV ONE (21:44)
[2016-12-21] MEDS ORDERED: oxyCODONE/APAP 10/325 Tab 1 EACH TAB PO SCH (22:15)
== END 2016-12-21 22:44 | disposition home or self-care (01) ==
LOC: ER 20:13
DX: S63.92XD Sprain of unspecified part of left wrist and hand, subsequent encounter (principal); W22.8XXD Striking against or struck by other objects, subsequent encounter
CPT/HCPCS: 80053; 85025; 85652; 86140; 96365; 96375; 99282; 99283; J1885; J2270; J2405; J3490

== ENCOUNTER → 2017-01-05 | Outpatient (CLI) | payer SELFPAY ==
--- NOTE | 2017-01-05 11:36 | DI ---
RIGHT LITTLE FINGER, 01/05/2017 9:51 AM: Clinical History: Pain in the right little finger. Previous Exam: None at this facility. Comparison is made with views of the right hand from 12/07/2016. 3 views are submitted. There is no acute soft tissue, osseous, or joint abnormality. There are are ol d fractures of the fifth metacarpal bone and the patient is status post ORIF of fractures of the dist al radius. 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 Readin. No abnormality of the little finger is appreciated. 2. Old fractures of the distal radius and the fifth metacarpal bone. 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
== END ==
LOC: ORTHO 11:01
PROVIDERS: ATTEND Orthopaedic Surgery
DX: M65.841 Other synovitis and tenosynovitis, right hand (principal); M79.644 Pain in right finger(s); Z98.890 Other specified postprocedural states
CPT/HCPCS: 73140